=== PATIENT | male | born 1955 | race Caucasian/White ===

== ENCOUNTER → 2017-02-24 | Outpatient (CLI) | payer MEDICARE, BC ==
--- NOTE | 2017-02-25 08:27 | CT ---
EXAMINATION TYPE: CT angio chest DATE OF EXAM: 02/24/2017 COMPARISON: NONE HISTORY: Previous bypass in subclavian and clavicular arteries. Narrowing indicated in US. Pain in ar ms and hands. CT DLP: 1018.00 mGycm Automated exposure control for dose reduction was used. CONTRAST: CTA scan of the thorax is performed with IV Contrast, patient injected with 80 mL of Omnipaque 350, p ulmonary embolism protocol. MIP images are created and reviewed. 3D reconstructed images are create d on an independent workstation and reviewed. FINDINGS: LUNGS: The lungs are grossly clear with exception of some minimal basilar atelectatic change, there i s no concerning parenchymal mass or nodule identified. There is no pleural effusion or pneumothorax seen. The tracheobronchial tree is patent. AORTA: No additional significant abnormality is seen. MEDIASTINUM: There is satisfactory enhancement of the pulmonary artery and its branches, there is no CT evidence for pulmonary embolism. There are no greater than 1 cm hilar or mediastinal lymph nodes. No pericardial effusion is seen. OTHER: There is a small hiatal hernia. Right subclavian bypass graft changes are present.. IMPRESSION: POSTOP CHANGE.
--- NOTE | 2017-02-25 08:31 | CT ---
CT angiogram of the right upper extremity HISTORY: Anastomotic stenosis status post subclavian bypass graft Helical acquisition obtained through the right upper extremity during dynamic administration of nonio cindi radiographic contrast intravenously, 80 cc Omni 350 IV. Three-dimensional reconstructions perform ed on an alternate workstation. Correlation to CT angiogram of the chest same date The superior aortic branch vessels are patent. The right subclavian artery shows normal enhancement, patient's right subclavian bypass graft is noted. The axillary artery, brachial artery, radial and ul homa arteries are patent proximally, detail is somewhat limited peripherally. Surgical clips are prese nt at the level of the elbow. Proximal to the elbow there is a slight dilation of the brachial artery , apparent caliber change at the level of the surgical clip is noted which may represent anastomotic stenosis. Detail somewhat limited by field of view, technical factors however no definite filling def ect is present. Surgical clips present in the proximal forearm additionally. IMPRESSION: Bypass graft is patent, there may be anastomotic stricture within the upper extremity as described, detail somewhat limited peripherally as described above.
--- NOTE | 2017-02-25 08:36 | CT ---
EXAMINATION TYPE: CT angio neck DATE OF EXAM: 02/24/2017 HISTORY: Previous bypass in subclavian and clavicular arteries. Narrowing indicated in US. Pain in ar ms and hands. COMPARISON: CT angiogram of the chest same date CT DLP: 367.00 mGycm. Automated Exposure Control for Dose Reduction was Utilized. TECHNIQUE: CTA scan of the neck is performed with IV Contrast, patient injected with 50 mL of Omnipa que 350, axial images are obtained, coronal and sagittal reformatted images are reviewed. Three-D rec onstructed images are created on an independent workstation and reviewed. FINDINGS: Carotid/Vascular Structures: There is a three-vessel aortic arch. The left and right common carotid, the innominate artery, left and right subclavian arteries are patent. There is a stent present at the proximal subclavian artery, bypass graft is noted within the right subclavian artery distribution. A t the level of the distal aspect of the subclavian artery bypass there is a focal narrowing identifie d compatible with patient's history of stenosis. This is best seen on axial image 72. The vertebral arteries are patent bilaterally, left vertebral artery is dominant. Internal and machine operator replanter al carotid arteries are patent without significant stenosis. Other: No other significant abnormality. IMPRESSION: There is a stenosis distal to the patient's subclavian bypass graft near the junction wit h the axillary artery on the right, correlate with ultrasound findings.
== END | disposition home or self-care (01) ==
LOC: RADCTMAIN 15:34
PROVIDERS: ATTEND Surgery Vascular Surgery
DX: T82.858S Stenosis of other vascular prosthetic devices, implants and grafts, sequela (principal); Z88.0 Allergy status to penicillin; Z88.7 Allergy status to serum and vaccine; Z88.8 Allergy status to other drugs, medicaments and biological substances; Z91.09 Other allergy status, other than to drugs and biological substances
CPT/HCPCS: 70498; 71275; 73206; Q9967

== ENCOUNTER → 2017-05-02 | Outpatient (CLI) | payer MEDICARE, BC ==
[~2017-05-02] MED LIST: TUBERCULIN PPD (SKIN TEST) 5 UNIT/0.1 ML (MDV) VIAL INTRADERMA ONE
[2017-05-02 08:58] VITALS: BP 151/93; PULSE 83; RESP 16; TEMP 97.7
== END | disposition home or self-care (01) ==
LOC: PROCWHC3 08:40
PROVIDERS: ATTEND Internal Medicine Gastroenterology
DX: K51.50 Left sided colitis without complications (principal)
CPT/HCPCS: 86580

== ENCOUNTER 2017-05-04 17:17 | Inpatient (IN) | payer MEDICARE, BC ==
[2017-05-04] MEDS ORDERED: SODIUM CHLORIDE 0.9% 1,000 ML IV ONE (17:38)
--- NOTE | 2017-05-04 17:50 | ED ---
Nausea/Vomiting/Diarrhea HPI - General Chief complaint: Nausea/Vomiting/Diarrhea Stated complaint: Dry Heaving Time Seen by Provider: 05/04/17 17:30 Source: patient, RN notes reviewed Mode of arrival: ambulatory Limitations: no limitations - History of Present Illness Initial comments: This a 61-year-old male presents emergency Department chief complaint of diarrhea, C. diff. Patient states she's been having diarrhea over the last 2 weeks and to see his pilot submersible in [place] who ordered lab work and C. diff testing. Patient states that he was positive. Patient states that he was advised to emergency room because he was not feeling well and there is had some bleeding associated with it. Patient states he does take Coumadin has not recently had it checked. He states that he's been essentially anorexic because he has not felt well and has lost 15 pounds. Patient states he does have a history also colitis and this is why he sees a GI physician and states he's had bleeding in the past but never to this extent. Patient is having multiple episodes greater than 5 episodes of diarrhea daily very watery in nature. Patient states he has some abdominal cramping. He denies any chest pain, shortness of breath. He states he generalized feels weak and run down. - Related Data Home Medications Medication Instructions Recorded Confirmed Albuterol Inhaler [Ventolin Hfa 2 puff INHALATION RT-Q6H PRN 08/15/14 05/04/17 Inhaler] Atenolol [Tenormin] 25 mg PO BID 08/15/14 05/04/17 Montelukast [Singulair] 10 mg PO HS 08/15/14 05/04/17 Tamsulosin HCl [Flomax] 0.4 mg PO BID 08/15/14 05/04/17 Warfarin Sodium [Coumadin] 2.5 - 5 mg PO HS 08/15/14 05/04/17 Balsalazide Disodium 2,250 mg PO TID 08/07/15 05/04/17 Dicyclomine HCl 10 mg PO TID PRN 08/07/15 05/04/17 Fluticasone/Salmeterol [Advair 1 puff INHALATION RT-DAILY 08/07/15 05/04/17 250-50 Diskus] L.acidoph,Paracasei, B.lactis 1 cap PO DAILY 08/07/15 05/04/17 [Probiotic] Atorvastatin [Lipitor] 40 mg PO HS 05/02/17 05/04/17 Lansoprazole [Prevacid] 30 mg PO DAILY 05/02/17 05/04/17 Simponi 100 mg IN Q30D 05/02/17 05/04/17 Ubidecarenone [Co Q-10] 100 mg PO HS 05/02/17 05/04/17 Albuterol Nebulized [Ventolin 2.5 mg INHALATION RT-Q6H PRN 05/04/17 05/04/17 Nebulized] Aspirin [Adult Low Dose Aspirin EC] 81 mg PO DAILY 05/04/17 05/04/17 HYDROcodone/APAP 5-325MG [[place] 1 tab PO Q6HR PRN 05/04/17 05/04/17 5-325] Previous Rx's Medication Instructions Recorded Clopidogrel [Plavix] 75 mg PO DAILY #90 tab 08/11/15 Nitroglycerin Sl Tabs [Nitrostat] 0.4 mg SUBLINGUAL Q5M PRN #25 tab 08/11/15 Allergies Allergy/AdvReac Type Severity Reaction Status Date / Time iodine Allergy Severe Rash/Hives, Verified 05/04/17 17:48 Difficulty Breathing celecoxib [From Celebrex] Allergy Unknown Tongue Verified 05/04/17 17:48 Swelling chlorpheniramine polistirex Allergy Unknown Itching Verified 05/04/17 17:48 [From Tussionex] hydrocodone polistirex Allergy Unknown Itching Verified 05/04/17 17:48 [From Tussionex] Penicillins Allergy Unknown Unknown Verified 05/04/17 17:48 Rldrudz-Fkp-Ahp Reductase Allergy Unknown Muscle Verified 05/04/17 17:48 Inhibitor cramps Tetanus Vaccines and Toxoid Allergy Unknown Unknown Verified 05/04/17 17:48 [Tetanus Vaccines & Toxoid] Review of Systems ROS Statement: Those systems with pertinent positive or pertinent negative responses have been documented in the HPI. ROS Other: All systems not noted in ROS Statement are negative. Past Medical History Past Medical History: Coronary Artery Disease (CAD), Cancer, Chest Pain / Angina , Deep Vein Thrombosis (DVT), GERD/Reflux, GI Bleed, Hyperlipidemia, Hypertension, Prostate Disorder Additional Past Medical History / Comment(s): VERTIGO, BORN WITH EXTRA RIBS WHICH CAUSED NERVE DAMAGE TO BOTH ARMS, POOR CIRCULATION RIGHT ARM(thoracic outlet syndrome), STENTS IN RT ARM AND RT SUBCLAVIAN., ENLARGED PROSTATE, BASAL CELL CANCER, COLITIS, migraines. HX OF BLOOD CLOTS IN RIGHT ARM. History of Any Multi-Drug Resistant Organisms: None Reported, C-DIFF Date of last positivie culture/infection: 05/04/2017 MDRO Source:: stool Past Surgical History: Heart Catheterization With Stent, Hernia Repair Additional Past Surgical History / Comment(s): 08-10-15 heart cath with total of 5 stents to lad.REMOVAL OF LEFT RIB. [id number] RT SUBCLAVIAN BYPASS & BRACHIAL BYPASS WITH STENTS. MULTIPLE BLOCKAGES RIGHT ARM SUBCLAVIAN ARTERY, DEVIATED SEPTUM SURGERY, av inguinal hernia, LEFT CARPAL TUNNEL. hemorrhoidectomy, stent rca. Arteriogram right arm and subclavian- Past Anesthesia/Blood Transfusion Reactions: Motion Sickness Date of Last Stent Placement:: JULY 2006 Past Psychological History: No Psychological Hx Reported Smoking Status: Never smoker Past Alcohol Use History: Occasional Past Drug Use History: None Reported - Past Family History Brother(s) Family Medical History: Coronary Artery Disease (CAD) Additional Family Medical History / Comment(s): cabg Father Additional Family Medical History / Comment(s): age 60 from pul fibrosis Mother Family Medical History: Coronary Artery Disease (CAD) Additional Family Medical History / Comment(s): cabg General Exam General appearance: alert, in no apparent distress Head exam: Present: atraumatic, normocephalic, normal inspection Respiratory exam: Present: normal lung sounds bilaterally. Absent: respiratory distress, wheezes, rales, rhonchi, stridor Cardiovascular Exam: Present: normal rhythm, tachycardia, normal heart sounds. Absent: systolic murmur, diastolic murmur, rubs, gallop, clicks GI/Abdominal exam: Present: soft, tenderness (Mild diffuse), normal bowel sounds. Absent: distended, guarding, rebound, rigid Neurological exam: Present: alert, oriented X3, CN II-XII intact Skin exam: Present: warm, dry, intact, normal color. Absent: rash Course Vital Signs 05/04/17 05/04/17 17:23 18:28 Temperature 97.5 F L Pulse Rate 129 H 87 Respiratory 18 18 Rate Blood Pressure 115/81 O2 Sat by Pulse 98 Oximetry Medical Decision Making - Lab Data Result diagrams: 05/04/17 17:57 05/04/17 17:57 Lab Results 05/04/17 05/04/17 05/04/17 Range/Units 17:57 17:57 17:57 WBC 17.8 H (3.8-10.6) k/uL RBC 5.10 (4.30-5.90) m/uL Hgb 15.5 (13.0-17.5) gm/dL Hct 47.6 (39.0-53.0) % MCV 93.3 (80.0-100.0) fL MCH 30.3 (25.0-35.0) pg MCHC 32.5 (31.0-37.0) g/dL RDW 14.0 (11.5-15.5) % Plt Count 287 (150-450) k/uL Neutrophils % 81 % Lymphocytes % 12 % Monocytes % 5 % Eosinophils % 1 % Basophils % 0 % Neutrophils # 14.3 H (1.3-7.7) k/uL Lymphocytes # 2.0 (1.0-4.8) k/uL Monocytes # 0.9 (0-1.0) k/uL Eosinophils # 0.2 (0-0.7) k/uL Basophils # 0.1 (0-0.2) k/uL PT 30.9 H (9.0-12.0) sec INR 3.2 H (<1.2) APTT 34.5 H (22.0-30.0) sec Sodium 138 (137-145) mmol/L Potassium 3.6 (3.5-5.1) mmol/L Chloride 103 (98-107) mmol/L Carbon Dioxide 26 (22-30) mmol/L Anion Gap 9 mmol/L BUN 10 (9-20) mg/dL Creatinine 1.10 (0.66-1.25) mg/dL Est GFR (MDRD) Af Amer >60 (>60 ml/min/1.73 sqM) Est GFR (MDRD) Non-Af >60 (>60 ml/min/1.73 sqM) Glucose 125 H (74-99) mg/dL Calcium 8.6 (8.4-10.2) mg/dL 05/04/17 18:37 EKG performed at 18:24 normal sinus rhythm with left axis deviation rate of 87 CA 152 QRS duration of 90 QT/QTC 370/445 Disposition Clinical Impression: C. difficile colitis, Ulcerative colitis, Rectal bleeding, Dehydration, Leukocytosis, Warfarin-induced coagulopathy Disposition: ADMITTED IP TO THIS HOSP Condition: Fair Referrals: Vick Luciano MD [Primary Care Provider] - 1-2 days
[2017-05-04 18:14] LABS: Basophils # (A) 0.1 k/uL (0-0.2); Basophils % (A) 0 %; CH 31.9; CHCM 34.3; Eosinophils # (A) 0.2 k/uL (0-0.7); Eosinophils % (A) 1 %; HCT 47.6 % (39.0-53.0); HDW 2.78; HGB 15.5 gm/dL (13.0-17.5); Luc # (Auto) 0.25; Luc % (Auto) 1; Lymphocytes % (A) 12 %; MCH 30.3 pg (25.0-35.0); MCHC 32.5 g/dL (31.0-37.0); MCV 93.3 fL (80.0-100.0); Mean Platelet Volume 7.2; Monocytes # (A) 0.9 k/uL (0-1.0); Monocytes % (A) 5 %; Neutrophils # (A) 14.3 k/uL (1.3-7.7); Neutrophils % (A) 81 %; WBC 17.8 k/uL (3.8-10.6); WBC (Perox) 17.43
[2017-05-04 18:21] LABS: INR 3.2 (<1.2); Partial Thromboplastin Time 34.5 sec (22.0-30.0); Prothrombin Time 30.9 sec (9.0-12.0)
[2017-05-04 18:22] LABS: Anion Gap 9 mmol/L; Blood Urea Nitrogen 10 mg/dL (9-20); Calcium 8.6 mg/dL (8.4-10.2); Carbon Dioxide 26 mmol/L (22-30); Chloride 103 mmol/L (98-107); Glucose 125 mg/dL (74-99); Non-African American GFR(MDRD) >60 (>60 ml/min/1.73 sqM); Potassium 3.6 mmol/L (3.5-5.1); Sodium 138 mmol/L (137-145)
[2017-05-04] MEDS ORDERED: NALOXONE 0.4 MG/ML 1 ML VIAL IV PRN (18:39)
[2017-05-04] MEDS ORDERED: ALBUTEROL INHALER 60 PUFF/8 GM INHALER INHALATION PRN (18:43)
[2017-05-04] MEDS ORDERED: HYDROcodone/APAP 5-325MG 1 EACH TAB PO PRN (18:43)
[2017-05-04] MEDS ORDERED: DICYCLOMINE 10 MG CAP PO PRN (18:43)
[2017-05-04] MEDS ORDERED: ALBUTEROL NEBULIZED 2.5 MG/3 ML INHALATION PRN (18:43)
[2017-05-04] MEDS ORDERED: NITROGLYCERIN SL TABS 0.4 MG TAB SUBLINGUAL PRN (18:43)
[2017-05-04] MEDS ORDERED: metroNIDAZOLE 500 MG TAB PO STA (18:43)
[2017-05-04] MEDS: SODIUM CHLORIDE 0.9% 1,000 ML IV SCH (19:01)
[2017-05-04] MEDS ORDERED: NON-FORMULARY DRUG (Ubidecarenone [Co Q-10] 100 MG) PO SCH (21:00)
[2017-05-04 21:14] VITALS: BMI 26.4
[2017-05-04] MEDS: ATORVASTATIN 40 MG TAB PO SCH (22:27)
[2017-05-04] MEDS: TAMSULOSIN 0.4 MG CAP.ER.24H PO SCH (22:27)
[2017-05-04] MEDS: ATENOLOL 25 MG TAB PO SCH (22:27)
[2017-05-04] MEDS: MONTELUKAST 10 MG TAB PO SCH (22:27)
[2017-05-04] MEDS: metroNIDAZOLE 500 MG TAB PO SCH (22:27)
[2017-05-05] MEDS ORDERED: PANTOPRAZOLE 40 MG TABLET PO SCH (07:30)
[2017-05-05] MEDS: SYMBICORT 80-4.5 MCG INHALER INHALATION SCH ×2 (07:46→19:55)
[2017-05-05] MEDS: SODIUM CHLORIDE 0.9% 1,000 ML IV SCH ×2 (08:18→15:14)
[2017-05-05] MEDS: LACTOBACILLUS ACIDOPH & BULGAR 1 EACH PACKET PO SCH (08:18)
[2017-05-05] MEDS: ATENOLOL 25 MG TAB PO SCH (08:18)
[2017-05-05] MEDS: metroNIDAZOLE 500 MG TAB PO SCH (08:20)
[2017-05-05] MEDS: TAMSULOSIN 0.4 MG CAP.ER.24H PO SCH ×2 (08:21→20:10)
[2017-05-05 08:59] LABS: Basophils # (A) 0.1 k/uL (0-0.2); Basophils % (A) 1 %; CH 31.4; CHCM 33.3; Eosinophils # (A) 0.3 k/uL (0-0.7); Eosinophils % (A) 3 %; HCT 44.4 % (39.0-53.0); Luc # (Auto) 0.25; Luc % (Auto) 2; Lymphocytes # (A) 2.3 k/uL (1.0-4.8); Lymphocytes % (A) 21 %; MCH 30.1 pg (25.0-35.0); MCHC 31.7 g/dL (31.0-37.0); Mean Platelet Volume 7.2; Monocytes # (A) 0.6 k/uL (0-1.0); Monocytes % (A) 5 %; Neutrophils # (A) 7.7 k/uL (1.3-7.7); Neutrophils % (A) 68 %; RBC 4.67 m/uL (4.30-5.90); RDW 13.7 % (11.5-15.5); WBC 11.2 k/uL (3.8-10.6); WBC (Perox) 10.66
[2017-05-05 09:04] LABS: Prothrombin Time 28.6 sec (9.0-12.0)
--- NOTE | 2017-05-05 13:27 | P.CNPUL ---
History of Present Illness Consult date: 05/05/17 Reason for consult: asthma Chief complaint: Nausea,vomiting and diarrhea History of present illness: This is a 61-year-old male patient who typically sees Dr. Luciano in our office for his asthma who presented to the emergency department on 05/04/2017 with dry heaving, diarrhea 3 weeks, nausea and vomiting. He has an underlying history of ulcerative colitis for which she sees a GI specialist from [place], Dr. Jonathan Chacon, who has the patient on Golimumab, dicyclomine and balsalazide disodium. Patient has recently had an overnight hospitalization at the [facility] in [place] for an arteriogram of his right arm for his history of right subclavian and brachial bypass with stents and history of DVT in his right arm. Patient was having frequent episodes of watery diarrhea up to 5 or 6 episodes a day, and some bleeding associated with it. He developed nausea and vomiting, and 15 pound weight loss in the last 3 weeks. He went to see Dr. Chacon who had recommended stool studies and stool for C. diff. Stool for C. diff was positive on 05/04/2017. He was initiated on oral Flagyl however is dry heaving got progressively worse along with his weakness and patient came into the emergency room for evaluation and was subsequently admitted. He is on Coumadin for his history of DVT in his right arm, INR admission was 3.2. Patient had one episode of loose, blood tinged stool this morning. His hemoglobin is stable at 14 today. There is evidence of leukocytosis on admission, which has improved today, down to 11.2 from 17.8. He denies fever or chills, denies chest congestion or significant sputum production. Denies hemoptysis, or increased shortness of breath. Today he is able to tolerate sips of clear liquids. He did receive a liter bolus of IV crystalloids in the emergency room, and his current maintenance IV fluid is 0.9 normal saline at 100 mL per hour. He denies any pulmonary complaints, his asthma has been under good control. Lung sounds are clear to auscultation, no rhonchi no wheezes. His abdomen is tender on both sides from extensive retching. He was tachycardic on presentation with a heart rate in the 129 BPM, today his heart rate is controlled and around 80 BPM. We will continue with his maintenance inhalers and nebulized albuterol as needed. Continue his home dose Singulair. Review of Systems Constitutional: Denies chills, Denies fever Eyes: denies blurred vision, denies pain Ears, nose, mouth and throat: Denies headache, Denies sore throat Cardiovascular: Denies chest pain, Denies shortness of breath Respiratory: Denies cough Gastrointestinal: Denies abdominal pain, Denies diarrhea, Denies nausea, Denies vomiting Musculoskeletal: Denies myalgias Integumentary: Denies pruritus, Denies rash Neurological: Denies numbness, Denies weakness Psychiatric: Denies anxiety, Denies depression Endocrine: Denies fatigue, Denies weight change Past Medical History Past Medical History: Coronary Artery Disease (CAD), Cancer, Chest Pain / Angina , Deep Vein Thrombosis (DVT), GERD/Reflux, GI Bleed, Hyperlipidemia, Hypertension, Prostate Disorder Additional Past Medical History / Comment(s): VERTIGO, BORN WITH EXTRA RIBS WHICH CAUSED NERVE DAMAGE TO BOTH ARMS, POOR CIRCULATION RIGHT ARM(thoracic outlet syndrome), STENTS IN RT ARM AND RT SUBCLAVIAN., ENLARGED PROSTATE, BASAL CELL CANCER, COLITIS, migraines. HX OF BLOOD CLOTS IN RIGHT ARM. History of Any Multi-Drug Resistant Organisms: None Reported, C-DIFF Date of last positivie culture/infection: 05/04/2017 MDRO Source:: stool Past Surgical History: Heart Catheterization With Stent, Hernia Repair Additional Past Surgical History / Comment(s): heart cath with total of 6 stents to lad.REMOVAL OF LEFT RIB. [id number] RT SUBCLAVIAN BYPASS & BRACHIAL BYPASS WITH STENTS. MULTIPLE BLOCKAGES RIGHT ARM SUBCLAVIAN ARTERY, DEVIATED SEPTUM SURGERY, av inguinal hernia, LEFT CARPAL TUNNEL. hemorrhoidectomy, stent rca. Arteriogram right arm and subclavian- Past Anesthesia/Blood Transfusion Reactions: Motion Sickness Date of Last Stent Placement:: July 2015 Past Psychological History: No Psychological Hx Reported Smoking Status: Never smoker Past Alcohol Use History: Occasional Past Drug Use History: None Reported - Past Family History Brother(s) Family Medical History: Coronary Artery Disease (CAD) Additional Family Medical History / Comment(s): cabg Father Additional Family Medical History / Comment(s): age 60 from pul fibrosis Mother Family Medical History: Coronary Artery Disease (CAD) Additional Family Medical History / Comment(s): cabg Medications and Allergies Home Medications Medication Instructions Recorded Confirmed Type Albuterol Inhaler [Ventolin Hfa 2 puff INHALATION RT-Q6H PRN 08/15/14 05/04/17 History Inhaler] Atenolol [Tenormin] 25 mg PO BID 08/15/14 05/04/17 History Montelukast [Singulair] 10 mg PO HS 08/15/14 05/04/17 History Tamsulosin HCl [Flomax] 0.4 mg PO BID 08/15/14 05/04/17 History Warfarin Sodium [Coumadin] 2.5 - 5 mg PO HS 08/15/14 05/04/17 History Balsalazide Disodium 2,250 mg PO TID 08/07/15 05/04/17 History Dicyclomine HCl 10 mg PO TID PRN 08/07/15 05/04/17 History Fluticasone/Salmeterol [Advair 1 puff INHALATION RT-DAILY 08/07/15 05/04/17 History 250-50 Diskus] L.acidoph,Paracasei, B.lactis 1 cap PO DAILY 08/07/15 05/04/17 History [Probiotic] Clopidogrel [Plavix] 75 mg PO DAILY #90 tab 08/11/15 05/04/17 Rx Nitroglycerin Sl Tabs [Nitrostat] 0.4 mg SUBLINGUAL Q5M PRN #25 tab 08/11/1512/14 Rx Atorvastatin [Lipitor] 40 mg PO HS 05/02/17 05/04/17 History Lansoprazole [Prevacid] 30 mg PO DAILY 05/02/17 05/04/17 History Simponi 100 mg IN Q30D 05/02/17 05/04/17 History Ubidecarenone [Co Q-10] 100 mg PO HS 05/02/17 05/04/17 History Albuterol Nebulized [Ventolin 2.5 mg INHALATION RT-Q6H PRN 05/04/17 05/04/17 History Nebulized] Aspirin [Adult Low Dose Aspirin EC] 81 mg PO DAILY 05/04/17 05/04/17 History HYDROcodone/APAP 5-325MG [[place] 1 tab PO Q6HR PRN 05/04/17 05/04/17 History 5-325] Allergies Allergy/AdvReac Type Severity Reaction Status Date / Time iodine Allergy Severe Rash/Hives, Verified 05/04/17 17:48 Difficulty Breathing celecoxib [From Celebrex] Allergy Unknown Tongue Verified 05/04/17 17:48 Swelling chlorpheniramine polistirex Allergy Unknown Itching Verified 05/04/17 17:48 [From Tussionex] hydrocodone polistirex Allergy Unknown Itching Verified 05/04/17 17:48 [From Tussionex] Penicillins Allergy Unknown Unknown Verified 05/04/17 17:48 Zmekalv-Ghw-Qbr Reductase Allergy Unknown Muscle Verified 05/04/17 17:48 Inhibitor cramps Tetanus Vaccines and Toxoid Allergy Unknown Unknown Verified 05/04/17 17:48 [Tetanus Vaccines & Toxoid] Physical Exam Vitals: Vital Signs Temp Pulse Pulse Pulse Resp BP BP 05/05/17 07:00 97.1 F L 68 20 96/56 05/05/17 00:00 18 05/04/17 23:00 97.3 F L 69 18 110/67 05/04/17 20:07 98.5 F 87 18 137/74 05/04/17 19:01 98.4 F 87 18 129/66 05/04/17 18:28 87 18 05/04/17 17:23 97.5 F L 129 H 18 115/81 Pulse Ox 05/05/17 07:00 96 05/05/17 00:00 05/04/17 23:00 96 05/04/17 20:07 97 05/04/17 19:01 98 05/04/17 18:28 05/04/17 17:23 98 Intake and Output 05/04/17 05/05/17 05/05/17 22:59 06:59 14:59 Other: Voiding Method Toilet # Voids 2 2 # Bowel Movements 1 Weight 79 kg 79 kg Patient Weight 05/06/17 06:59 Weight 79 kg GENERAL EXAM: Alert, active, comfortable in no apparent distress. HEAD: Normocephalic. EYES: Normal reaction of pupils, equal size. NOSE: Clear with pink turbinates. THROAT: No erythema or exudates. NECK: No masses, no JVD. CHEST: No chest wall deformity. LUNGS: Equal air entry with no crackles, wheeze, rhonchi or dullness. CVS: S1 and S2 normal with no audible mumurs, regular rhythm. ABDOMEN: No hepatosplenomegaly, normal bowel sounds, no rigidity, tenderness of both sides abdominal wall from retching SPINE: No scoliosis or deformity SKIN: No rashes CENTRAL NERVOUS SYSTEM: No focal deficits, tone is normal in all 4 extremities. Results - Laboratory Findings CBC and BMP: 05/05/17 08:19 05/04/17 17:57 PT/INR, D-dimer PT 28.6 sec (9.0-12.0) H 05/05/17 08:19 INR 3.0 (<1.2) H 05/05/17 08:19 Abnormal lab findings: Abnormal Labs 05/04/17 05/04/17 05/04/17 17:57 17:57 17:57 WBC 17.8 H Neutrophils # 14.3 H PT 30.9 H INR 3.2 H APTT 34.5 H Glucose 125 H 05/05/17 10 08:19 08:19 WBC 11.2 H Neutrophils # PT 28.6 H INR 3.0 H APTT Glucose Assessment and Plan Plan: Assessment: #1. Acute C. difficile colitis, present on admission #2. Acute Rectal bleeding, warfarin-induced coagulopathy, INR is 3.2 on admission #3. History of bronchial asthma, stable at this time. #4. Acute dehydration from nausea vomiting diarrhea. #5. History of ulcerative colitis, currently on Golimumab, Bentyl and balsalazide disodium. #6. History of right arm DVT, currently on Coumadin. #7. History of coronary artery disease. #8. History of GI bleeding #9. History of hypertension #10. History of right subclavian and brachial bypass with stents. Plan: Continue patient on Symbicort, albuterol nebulized treatments as needed and home go Singulair. Patient's asthma seems to be stable for now. No acute pulmonary complaints. Continue with hydration, Flagyl, Bentyl and lactobacillus. We'll continue to follow with you. I performed a history & physical examination of the patient and discussed their management with my nurse practitioner, Janeth Almazan. I reviewed the nurse practitioner's note and agree with the documented findings and plan of care. Time with Patient: Greater than 30
--- NOTE | 2017-05-05 15:01 | P.HPIM ---
History of Present Illness 61-year-old came in the because of C. diff colitis that was diagnosed in as an outpatient patient has to stay in the hospital because he get the blood in the stools today morning. Patient is on 3 medications couple of them on anti- platelet medication one of them is Coumadin. Patient is on dual antiplatelet therapy for his cardiac catheterization and stents that were placed about a year and half ago, patient is on Coumadin because of his DVTs in the past multiple of them. Patient does have history of Crohn's colitis this time patient has a C. diff colitis patient has minimal crampy abdominal pain in the lower abdominal quadrants. Patient denied any fever, chills although his hemoglobin remained stable because of his bloody bowel movements I'm holding off on above-mentioned 3 medications that his aspirin, Plavix and and Coumadin patient probably need to be discharged on aspirin and Coumadin Plavix can be held since his cardiac catheterization and stenting was more than a year ago same thing will be discussed with his chute builder will monitor 1 more night because of his blood in the stools. Patient has leukocytosis of 17,000 because of which am putting him on vancomycin and discontinuing metronidazole IV. Patient's INR is therapeutic on this admission. Patient was recently hospitalized but was not on any antibiotics as per the patient Review of Systems REVIEW OF SYSTEMS: CONSTITUTIONAL: No fever, no malaise, no fatigue. HEENT: No recent visual problems or hearing problems. Denied any sore throat. CARDIOVASCULAR: No chest pain, orthopnea, PND, no palpitations, no syncope. PULMONARY: No shortness of breath, no cough, no hemoptysis. GASTROINTESTINAL: As described in HPI NEUROLOGICAL: No headaches, no weakness, no numbness. HEMATOLOGICAL: Denies any bleeding or petechiae. GENITOURINARY: Denies any burning micturition, frequency, or urgency. MUSCULOSKELETAL/RHEUMATOLOGICAL: Denies any joint pain, swelling, or any muscle pain. ENDOCRINE: Denies any polyuria or polydipsia. The rest of the 14-point review of systems is negative. Past Medical History Past Medical History: Coronary Artery Disease (CAD), Cancer, Chest Pain / Angina , Deep Vein Thrombosis (DVT), GERD/Reflux, GI Bleed, Hyperlipidemia, Hypertension, Prostate Disorder Additional Past Medical History / Comment(s): VERTIGO, BORN WITH EXTRA RIBS WHICH CAUSED NERVE DAMAGE TO BOTH ARMS, POOR CIRCULATION RIGHT ARM(thoracic outlet syndrome), STENTS IN RT ARM AND RT SUBCLAVIAN., ENLARGED PROSTATE, BASAL CELL CANCER, COLITIS, migraines. HX OF BLOOD CLOTS IN RIGHT ARM. History of Any Multi-Drug Resistant Organisms: None Reported, C-DIFF Date of last positivie culture/infection: 05/04/2017 MDRO Source:: stool Past Surgical History: Heart Catheterization With Stent, Hernia Repair Additional Past Surgical History / Comment(s): heart cath with total of 6 stents to lad.REMOVAL OF LEFT RIB. [id number] RT SUBCLAVIAN BYPASS & BRACHIAL BYPASS WITH STENTS. MULTIPLE BLOCKAGES RIGHT ARM SUBCLAVIAN ARTERY, DEVIATED SEPTUM SURGERY, av inguinal hernia, LEFT CARPAL TUNNEL. hemorrhoidectomy, stent rca. Arteriogram right arm and subclavian- Past Anesthesia/Blood Transfusion Reactions: Motion Sickness Date of Last Stent Placement:: July 2015 Past Psychological History: No Psychological Hx Reported Smoking Status: Never smoker Past Alcohol Use History: Occasional Past Drug Use History: None Reported - Past Family History Brother(s) Family Medical History: Coronary Artery Disease (CAD) Additional Family Medical History / Comment(s): cabg Father Additional Family Medical History / Comment(s): age 60 from pul fibrosis Mother Family Medical History: Coronary Artery Disease (CAD) Additional Family Medical History / Comment(s): cabg Medications and Allergies Home Medications Medication Instructions Recorded Confirmed Type Albuterol Inhaler [Ventolin Hfa 2 puff INHALATION RT-Q6H PRN 08/15/14 05/04/17 History Inhaler] Atenolol [Tenormin] 25 mg PO BID 08/15/14 05/04/17 History Montelukast [Singulair] 10 mg PO HS 08/15/14 05/04/17 History Tamsulosin HCl [Flomax] 0.4 mg PO BID 08/15/14 05/04/17 History Warfarin Sodium [Coumadin] 2.5 - 5 mg PO HS 08/15/14 05/04/17 History Balsalazide Disodium 2,250 mg PO TID 08/07/15 05/04/17 History Dicyclomine HCl 10 mg PO TID PRN 08/07/15 05/04/17 History Fluticasone/Salmeterol [Advair 1 puff INHALATION RT-DAILY 08/07/15 05/04/17 History 250-50 Diskus] L.acidoph,Paracasei, B.lactis 1 cap PO DAILY 08/07/15 05/04/17 History [Probiotic] Clopidogrel [Plavix] 75 mg PO DAILY #90 tab 08/11/15 05/04/17 Rx Nitroglycerin Sl Tabs [Nitrostat] 0.4 mg SUBLINGUAL Q5M PRN #25 tab 08/11/1512/14 Rx Atorvastatin [Lipitor] 40 mg PO HS 05/02/17 05/04/17 History Lansoprazole [Prevacid] 30 mg PO DAILY 05/02/17 05/04/17 History Simponi 100 mg IN Q30D 05/02/17 05/04/17 History Ubidecarenone [Co Q-10] 100 mg PO HS 05/02/17 05/04/17 History Albuterol Nebulized [Ventolin 2.5 mg INHALATION RT-Q6H PRN 05/04/17 05/04/17 History Nebulized] Aspirin [Adult Low Dose Aspirin EC] 81 mg PO DAILY 05/04/17 05/04/17 History HYDROcodone/APAP 5-325MG [[place] 1 tab PO Q6HR PRN 05/04/17 05/04/17 History 5-325] Allergies Allergy/AdvReac Type Severity Reaction Status Date / Time iodine Allergy Severe Rash/Hives, Verified 05/04/17 17:48 Difficulty Breathing celecoxib [From Celebrex] Allergy Unknown Tongue Verified 05/04/17 17:48 Swelling chlorpheniramine polistirex Allergy Unknown Itching Verified 05/04/17 17:48 [From Tussionex] hydrocodone polistirex Allergy Unknown Itching Verified 05/04/17 17:48 [From Tussionex] Penicillins Allergy Unknown Unknown Verified 05/04/17 17:48 Uaeslvm-Acu-Noq Reductase Allergy Unknown Muscle Verified 05/04/17 17:48 Inhibitor cramps Tetanus Vaccines and Toxoid Allergy Unknown Unknown Verified 05/04/17 17:48 [Tetanus Vaccines & Toxoid] Physical Exam Vitals: Vital Signs Temp Pulse Pulse Pulse Resp BP BP 05/05/17 07:00 97.1 F L 68 20 96/56 05/05/17 00:00 18 05/04/17 23:00 97.3 F L 69 18 110/67 05/04/17 20:07 98.5 F 87 18 137/74 05/04/17 19:01 98.4 F 87 18 129/66 05/04/17 18:28 87 18 05/04/17 17:23 97.5 F L 129 H 18 115/81 Pulse Ox 05/05/17 07:00 96 05/05/17 00:00 05/04/17 23:00 96 05/04/17 20:07 97 05/04/17 19:01 98 05/04/17 18:28 05/04/17 17:23 98 Intake and Output 05/04/17 05/05/17 05/05/17 22:59 06:59 14:59 Other: Voiding Method Toilet # Voids 2 2 # Bowel Movements 1 Weight 79 kg 79 kg Patient Weight 05/06/17 06:59 Weight 79 kg PHYSICAL EXAMINATION: GENERAL: The patient is alert and oriented x3, not in any acute distress. Well developed, well nourished. HEENT: Pupils are round and equally reacting to light. EOMI. No scleral icterus. No conjunctival pallor. Normocephalic, atraumatic. No pharyngeal erythema. No thyromegaly. CARDIOVASCULAR: S1 and S2 present. No murmurs, rubs, or gallops. PULMONARY: Chest is clear to auscultation, no wheezing or crackles. ABDOMEN: Soft, nontender, nondistended, normoactive bowel sounds. No palpable organomegaly. MUSCULOSKELETAL: No joint swelling or deformity. EXTREMITIES: No cyanosis, clubbing, or pedal edema. NEUROLOGICAL: Gross neurological examination did not reveal any focal deficits. SKIN: No rashes. Results CBC & Chem 7: 05/05/17 08:19 05/04/17 17:57 Labs: Abnormal Lab Results - Last 24 Hours (Table) 05/04/17 05/04/17 05/04/17 Range/Units 17:57 17:57 17:57 WBC 17.8 H (3.8-10.6) k/uL Neutrophils # 14.3 H (1.3-7.7) k/uL PT 30.9 H (9.0-12.0) sec INR 3.2 H (<1.2) APTT 34.5 H (22.0-30.0) sec Glucose 125 H (74-99) mg/dL 05/05/17 05/05/17 Range/Units 08:19 08:19 WBC 11.2 H (3.8-10.6) k/uL Neutrophils # (1.3-7.7) k/uL PT 28.6 H (9.0-12.0) sec INR 3.0 H (<1.2) APTT (22.0-30.0) sec Glucose (74-99) mg/dL Thrombosis Risk Factor Assmnt - Choose All That Apply Any of the Below Risk Factors Present?: Yes Each Factor Represents 1 point: Obesity (BMI >25) Other Risk Factors: Yes Each Risk Factor Represents 2 Points: Age 61-74 years Each Risk Factor Represents 3 Points: History of DVT/PE Thrombosis Risk Factor Assessment Total Risk Factor Score: 6 Thrombosis Risk Factor Assessment Level: High Risk Assessment and Plan Plan: #1 C. diff colitis: Patient will be started on oral vancomycin will need about 10 days of oral vancomycin. Proton pump inhibitor will be discontinued #2 mild GI bleed is secondary to anticoagulation and an due to colitis: Monitor 1 more night hemoglobin fairly stable only minimal bleed because of dual antiplatelet therapy and Coumadin. #3 coronary artery disease with multiple stents in the past. Will discuss with his chute builder regarding dual anti-platelet therapy patient probably discharge will be discharged on aspirin no Plavix and will be on Coumadin. #4 leukocytosis due to C. diff colitis which is improving. #5 multiple DVTs in the past #6 history of ulcerative colitis for which patient is on salicylate which will be continued #7 benign prostatic hypertrophy #8 COPD without any acute exacerbation. #9 hyperlipidemia.
[2017-05-05] MEDS: VANCOMYCIN ORAL SOLUTION 250 MG/5 ML BOTTLE PO SCH ×3 (15:11→23:33)
[2017-05-05] MEDS: BALSALAZIDE DISODIUM 750 MG CAPSULE PO SCH ×2 (15:18→20:11)
[2017-05-05] MEDS: CHERRY FLAVOR 60 ML BOTTLE PO SCH ×2 (17:23→23:33)
[2017-05-05] MEDS: ATORVASTATIN 40 MG TAB PO SCH (20:10)
[2017-05-05] MEDS: FAMOTIDINE 20 MG TAB PO SCH (20:10)
[2017-05-05] MEDS: MONTELUKAST 10 MG TAB PO SCH (20:10)
[2017-05-05 23:08] VITALS: RESP 18
[2017-05-06] MEDS: SODIUM CHLORIDE 0.9% 1,000 ML IV SCH (00:27)
[2017-05-06] MEDS: VANCOMYCIN ORAL SOLUTION 250 MG/5 ML BOTTLE PO SCH (06:00)
[2017-05-06] MEDS: CHERRY FLAVOR 60 ML BOTTLE PO SCH (06:00)
[2017-05-06 07:38] VITALS: BP 121/72; PULSE 76; TEMP 97.4
[2017-05-06 08:21] LABS: CH 31.4; CHCM 33.2; HCT 41.1 % (39.0-53.0); HDW 2.82; HGB 13.1 gm/dL (13.0-17.5); MCH 30.3 pg (25.0-35.0); MCHC 31.9 g/dL (31.0-37.0); Mean Platelet Volume 7.5; RBC 4.33 m/uL (4.30-5.90); RDW 13.8 % (11.5-15.5); WBC 8.2 k/uL (3.8-10.6)
[2017-05-06 08:29] LABS: Anion Gap 6 mmol/L; Blood Urea Nitrogen 6 mg/dL (9-20); Calcium 8.1 mg/dL (8.4-10.2); Carbon Dioxide 27 mmol/L (22-30); Chloride 110 mmol/L (98-107); Glucose 90 mg/dL (74-99); Non-African American GFR(MDRD) >60 (>60 ml/min/1.73 sqM); Potassium 3.7 mmol/L (3.5-5.1); Sodium 143 mmol/L (137-145)
[2017-05-06] MEDS: SYMBICORT 80-4.5 MCG INHALER INHALATION SCH (08:50)
[2017-05-06] MEDS: TAMSULOSIN 0.4 MG CAP.ER.24H PO SCH (09:06)
[2017-05-06] MEDS: BALSALAZIDE DISODIUM 750 MG CAPSULE PO SCH (09:07)
[2017-05-06] MEDS: FAMOTIDINE 20 MG TAB PO SCH (09:07)
[2017-05-06] MEDS: LACTOBACILLUS ACIDOPH & BULGAR 1 EACH PACKET PO SCH (09:08)
--- NOTE | 2017-05-06 11:18 | P.PN ---
Subjective Progress note dated 05/06/2017 This is a 61-year-old male admitted with a diagnosis of Clostridium difficile colitis some rectal bleeding secondary to Coumadin chronic bronchial asthma dehydration ulcerative colitis a previous history of right arm DVT CAD GI bleed hypertension and right subclavian and brachial bypass with stents. The patient was doing very well on Flagyl. Apparently felt much improved. Someone switched to vancomycin he doesn't seem to be doing as well. I told the patient he could be discharged home today on Flagyl or vancomycin. Vancomycin may be more difficult to get the pharmacy and it probably is going to be more expensive. I did talk to the nurse about asking the hospitalist as to whether or not the patient could be discharged home on Flagyl. Anyway I would recommend Flagyl 500 mg 3 times a day for 7-10 days. The patient otherwise is doing well. Sees my partner is her primary. Feeling much better. His is in the room with him. Objective - Vital Signs Vital signs: Vital Signs Temp 97.4 F L 05/06/17 07:00 Pulse 76 05/06/17 07:00 Resp 18 05/06/17 07:00 BP 121/72 05/06/17 07:00 Pulse Ox 95 05/06/17 07:00 Intake & Output 05/05/17 05/06/17 05/06/17 18:59 06:59 18:59 Intake Total 240 975 300 Balance 240 975 300 Weight 79 kg Intake: Oral 240 975 300 Other: Voiding Method Toilet # Voids 1 2 # Bowel Movements 1 - Exam No acute distress, oriented 3. HEENT examination is grossly unremarkable. Mucous membranes are moist. Neck supple. Full range of motion. No adenopathy thyromegaly or neck vein distention. Cardiovascular examination reveals regular rhythm rate. S1-S2 normal. No S3- S4 or murmur. Lungs are clear breath sounds are equal. No adventitious lung sounds. Abdomen soft. Bowel sounds are heard. Extremities are intact. No cyanosis clubbing or edema. Skin is without rash. Neurologic examination is nonfocal. - Labs CBC & Chem 7: 05/06/17 07:44 05/06/17 07:44 Labs: Abnormal Lab Results - Last 24 Hours (Table) 05/06/17 Range/Units 07:44 Chloride 110 H (98-107) mmol/L BUN 6 L (9-20) mg/dL Calcium 8.1 L (8.4-10.2) mg/dL Assessment and Plan (1) Asthma Status: Acute (2) CAD (coronary artery disease) Status: Acute (3) Hypertension Status: Acute (4) DVT of axillary vein, acute right Status: Acute (5) C. difficile colitis Status: Acute (6) Dehydration Status: Acute (7) Leukocytosis Status: Acute (8) Rectal bleeding Status: Acute (9) Ulcerative colitis Status: Acute (10) Warfarin-induced coagulopathy Status: Acute Plan: Plan dated 05/06/2017 The patient was doing well on Flagyl. The patient was switched to vancomycin. Doesn't seem that the vancomycin and agrees with him as much. The patient could be discharged home on Flagyl 503 times a day for 7-10 days. For the patient could be discharged home on vancomycin. Vancomycin is probably going to be more difficult for the pharmacy to get especially on a weekend and likely is going to be more expensive for the patient. The patient should follow with my partner post discharge. No additional recommendations are made. Time with Patient: Less than 30
[2017-05-06] MEDS ORDERED: ASPIRIN 81 MG PO PRN (12:08)
--- NOTE | 2017-05-06 12:17 | P.DS ---
Providers Date of admission: 05/04/17 18:46 Attending physician: Jesús Watson Consults: 05/05/17 13:27 Consult Physician Routine Consulting Provider: Huseyin Cornell Consult Reason/Comments: knew the pt Do you want consulting provider notified?: Yes Primary care physician: Vick Luciano [facility] Hospital Course: Patient was admitted for C. diff colitis and patient had a bloody stools yesterday which resolved at this point of time patient started having diarrhea patient does have chronic diarrhea because of be stopped Bentyl which she was taking at home as he has C. diff this time he started having diarrhea again. Patient will be discharged home with either oral vancomycin and metronidazole oral. Discussed with cardiology for now will hold off on Plavix until he sees his stone decorator as an outpatient patient will be discharged on aspirin and Coumadin PHYSICAL EXAMINATION: GENERAL: The patient is alert and oriented x3, not in any acute distress. Well developed, well nourished. HEENT: Pupils are round and equally reacting to light. EOMI. No scleral icterus. No conjunctival pallor. Normocephalic, atraumatic. No pharyngeal erythema. No thyromegaly. CARDIOVASCULAR: S1 and S2 present. No murmurs, rubs, or gallops. PULMONARY: Chest is clear to auscultation, no wheezing or crackles. ABDOMEN: Soft, nontender, nondistended, normoactive bowel sounds. No palpable organomegaly. MUSCULOSKELETAL: No joint swelling or deformity. EXTREMITIES: No cyanosis, clubbing, or pedal edema. NEUROLOGICAL: Gross neurological examination did not reveal any focal deficits. SKIN: No rashes. #1 C. diff colitis: #2 mild GI bleed is secondary to anticoagulation and an due to colitis: #3 coronary artery disease with multiple stents in the past. #4 leukocytosis due to C. diff colitis which is improving. #5 multiple DVTs in the past #6 history of ulcerative colitis for which patient is on salicylate which will be continued #7 benign prostatic hypertrophy #8 COPD without any acute exacerbation. #9 hyperlipidemia. Patient Condition at Discharge: Fair Plan - Discharge Summary New Discharge Prescriptions: New Vancomycin Oral Solution 250 mg PO Q6HR #10 day Continue Montelukast [Singulair] 10 mg PO HS Tamsulosin HCl [Flomax] 0.4 mg PO BID Albuterol Inhaler [Ventolin Hfa Inhaler] 2 puff INHALATION RT-Q6H PRN PRN Reason: Shortness Of Breath Warfarin Sodium [Coumadin] 2.5 - 5 mg PO HS Fluticasone/Salmeterol [Advair 250-50 Diskus] 1 puff INHALATION RT-DAILY L.acidoph,Paracasei, B.lactis [Probiotic] 1 cap PO DAILY Dicyclomine HCl 10 mg PO TID PRN PRN Reason: colitis Balsalazide Disodium 2,250 mg PO TID Nitroglycerin Sl Tabs [Nitrostat] 0.4 mg SUBLINGUAL Q5M PRN #25 tab PRN Reason: Chest Pain Lansoprazole [Prevacid] 30 mg PO DAILY Atorvastatin [Lipitor] 40 mg PO HS Ubidecarenone [Co Q-10] 100 mg PO HS Simponi 100 mg IN Q30D HYDROcodone/APAP 5-325MG [[place] 5-325] 1 tab PO Q6HR PRN PRN Reason: Pain Albuterol Nebulized [Ventolin Nebulized] 2.5 mg INHALATION RT-Q6H PRN PRN Reason: Shortness Of Breath Aspirin [Adult Low Dose Aspirin EC] 81 mg PO DAILY Changed Atenolol [Tenormin] 25 mg PO DAILY #0 Discontinued Clopidogrel [Plavix] 75 mg PO DAILY #90 tab Discharge Medication List Albuterol Inhaler [Ventolin Hfa Inhaler] 2 puff INHALATION RT-Q6H PRN 08/15/14 [ History] Montelukast [Singulair] 10 mg PO HS 08/15/14 [History] Tamsulosin HCl [Flomax] 0.4 mg PO BID 08/15/14 [History] Warfarin Sodium [Coumadin] 2.5 - 5 mg PO HS 08/15/14 [History] Balsalazide Disodium 2,250 mg PO TID 08/07/15 [History] Dicyclomine HCl 10 mg PO TID PRN 08/07/15 [History] Fluticasone/Salmeterol [Advair 250-50 Diskus] 1 puff INHALATION RT-DAILY [History] L.acidoph,Paracasei, B.lactis [Probiotic] 1 cap PO DAILY 08/07/15 [History] Nitroglycerin Sl Tabs [Nitrostat] 0.4 mg SUBLINGUAL Q5M PRN #25 tab 08/11/15 [Rx ] Atorvastatin [Lipitor] 40 mg PO HS 05/02/17 [History] Lansoprazole [Prevacid] 30 mg PO DAILY 05/02/17 [History] Simponi 100 mg IN Q30D 05/02/17 [History] Ubidecarenone [Co Q-10] 100 mg PO HS 05/02/17 [History] Albuterol Nebulized [Ventolin Nebulized] 2.5 mg INHALATION RT-Q6H PRN 05/04/17 [ History] Aspirin [Adult Low Dose Aspirin EC] 81 mg PO DAILY 05/04/17 [History] HYDROcodone/APAP 5-325MG [[place] 5-325] 1 tab PO Q6HR PRN 05/04/17 [History] Atenolol [Tenormin] 25 mg PO DAILY #0 05/06/17 [Rx] Vancomycin Oral Solution 250 mg PO Q6HR #10 day 05/06/17 [Rx] Follow up Appointment(s)/Referral(s): Vick Luciano MD [Primary Care Provider] - 3 Days Discharge Disposition: HOME SELF-CARE
== END 2017-05-06 14:43 | disposition home or self-care (01) | DRG 372 ==
LOC: EC 17:17 → 4MS4W 18:46
PROVIDERS: ADMIT Hospitalist; ATTEND Hospitalist
DX: A04.72 Enterocolitis due to Clostridium difficile, not specified as recurrent (principal); I82.621 Acute embolism and thrombosis of deep veins of right upper extremity; K51.90 Ulcerative colitis, unspecified, without complications; K92.2 Gastrointestinal hemorrhage, unspecified; I10 Essential (primary) hypertension; E78.5 Hyperlipidemia, unspecified; E86.0 Dehydration; I25.10 Atherosclerotic heart disease of native coronary artery without angina pectoris; J44.9 Chronic obstructive pulmonary disease, unspecified; K21.9 Gastro-esophageal reflux disease without esophagitis; N40.0 Benign prostatic hyperplasia without lower urinary tract symptoms; R79.1 Abnormal coagulation profile; G43.909 Migraine, unspecified, not intractable, without status migrainosus; T45.515A Adverse effect of anticoagulants, initial encounter; Z79.01 Long term (current) use of anticoagulants; Z79.02 Long term (current) use of antithrombotics/antiplatelets; Z79.82 Long term (current) use of aspirin; Z79.899 Other long term (current) drug therapy; Z85.828 Personal history of other malignant neoplasm of skin; Z95.5 Presence of coronary angioplasty implant and graft; Z88.0 Allergy status to penicillin; Z88.7 Allergy status to serum and vaccine; Z88.8 Allergy status to other drugs, medicaments and biological substances; Z91.041 Radiographic dye allergy status; Z86.718 Personal history of other venous thrombosis and embolism; Z82.49 Family history of ischemic heart disease and other diseases of the circulatory system; Y92.009 Unspecified place in unspecified non-institutional (private) residence as the place of occurrence of the external cause
CPT/HCPCS: 36415; 80048; 80053; 85025; 85027; 85610; 85730; 86580; 87045; 87046; 87324; 87329; 93005; 94640; 96360; 99285

== ENCOUNTER → 2017-05-04 | Outpatient (CLI) | payer MEDICARE, BC ==
[2017-05-04 11:11] LABS: Basophils % (A) 0 %; CH 30.3; CHCM 32.3; Eosinophils # (A) 0.2 k/uL (0-0.7); Eosinophils % (A) 1 %; HCT 49.5 % (39.0-53.0); HDW 2.78; HGB 16.2 gm/dL (13.0-17.5); Luc # (Auto) 0.24; Luc % (Auto) 2; Lymphocytes # (A) 1.8 k/uL (1.0-4.8); Lymphocytes % (A) 16 %; MCH 30.8 pg (25.0-35.0); MCHC 32.6 g/dL (31.0-37.0); MCV 94.3 fL (80.0-100.0); Mean Platelet Volume 6.6; Monocytes # (A) 0.5 k/uL (0-1.0); Monocytes % (A) 5 %; Neutrophils # (A) 8.6 k/uL (1.3-7.7); Neutrophils % (A) 76 %; RBC 5.25 m/uL (4.30-5.90); RDW 12.8 % (11.5-15.5); WBC 11.4 k/uL (3.8-10.6); WBC (Perox) 11.45
[2017-05-04 11:31] LABS: ALT 45 U/L (21-72); AST 38 U/L (17-59); Alkaline Phosphatase 96 U/L (38-126); Anion Gap 10 mmol/L; Blood Urea Nitrogen 9 mg/dL (9-20); Carbon Dioxide 28 mmol/L (22-30); Chloride 101 mmol/L (98-107); Glucose 116 mg/dL (74-99); Non-African American GFR(MDRD) >60 (>60 ml/min/1.73 sqM); Potassium 3.7 mmol/L (3.5-5.1); Sodium 139 mmol/L (137-145); Total Bilirubin 0.4 mg/dL (0.2-1.3); Total Protein 6.6 g/dL (6.3-8.2)
== END | disposition home or self-care (01) ==
LOC: LABWHC1 10:22
PROVIDERS: ATTEND Physician Assistant
DX: K51.911 Ulcerative colitis, unspecified with rectal bleeding (principal); R19.7 Diarrhea, unspecified
CPT/HCPCS: 36415; 80053; 85025; 87045; 87046; 87324; 87329

== ENCOUNTER → 2017-06-20 | Outpatient (CLI) | payer MEDICARE, BC ==
[2017-06-20 07:20] LABS: Basophils % (A) 1 %; CH 30.3; CHCM 32.5; Eosinophils # (A) 0.3 k/uL (0-0.7); Eosinophils % (A) 3 %; HCT 48.3 % (39.0-53.0); HDW 2.57; HGB 15.7 gm/dL (13.0-17.5); Luc # (Auto) 0.27; Luc % (Auto) 4; Lymphocytes # (A) 2.7 k/uL (1.0-4.8); Lymphocytes % (A) 37 %; MCH 30.6 pg (25.0-35.0); MCHC 32.6 g/dL (31.0-37.0); MCV 93.7 fL (80.0-100.0); Mean Platelet Volume 6.8; Monocytes # (A) 0.6 k/uL (0-1.0); Monocytes % (A) 8 %; Neutrophils # (A) 3.6 k/uL (1.3-7.7); Neutrophils % (A) 48 %; RBC 5.15 m/uL (4.30-5.90); RDW 13.1 % (11.5-15.5); WBC 7.4 k/uL (3.8-10.6); WBC (Perox) 7.46
[2017-06-20 07:45] LABS: ALT 39 U/L (21-72); AST 39 U/L (17-59); Alkaline Phosphatase 63 U/L (38-126); Anion Gap 9 mmol/L; Blood Urea Nitrogen 17 mg/dL (9-20); Calcium 9.1 mg/dL (8.4-10.2); Carbon Dioxide 27 mmol/L (22-30); Chloride 105 mmol/L (98-107); Cholesterol 160 mg/dL (<200); Glucose 108 mg/dL (74-99); HDL Cholesterol 41 mg/dL (40-60); Non-African American GFR(MDRD) >60 (>60 ml/min/1.73 sqM); Potassium 4.5 mmol/L (3.5-5.1); Sodium 141 mmol/L (137-145); Total Bilirubin 0.7 mg/dL (0.2-1.3); Total Protein 7.3 g/dL (6.3-8.2)
== END | disposition home or self-care (01) ==
LOC: LABWHC1 06:33
PROVIDERS: ATTEND Internal Medicine
DX: Z00.00 Encounter for general adult medical examination without abnormal findings (principal); E78.5 Hyperlipidemia, unspecified; Z12.5 Encounter for screening for malignant neoplasm of prostate
CPT/HCPCS: 84439; 80061; 80053; 84443; 85025; 36415; G0103

== ENCOUNTER 2018-05-15 14:03 | Outpatient (CLI) | payer MEDICARE, BC ==
[2018-05-15 14:27] VITALS: BP 158/87; PULSE 54; RESP 16; TEMP 97.6
== END 2018-05-18 11:34 | disposition home or self-care (01) ==
LOC: PROCWHC3 14:03
PROVIDERS: ATTEND Internal Medicine Gastroenterology
DX: K51.50 Left sided colitis without complications (principal)
CPT/HCPCS: 86580

== ENCOUNTER → 2018-06-27 | Outpatient (CLI) | payer MEDICARE, BC ==
[2018-06-27 08:48] LABS: Basophils % (A) 0 %; Eosinophils # (A) 0.2 k/uL (0-0.7); Eosinophils % (A) 3 %; HCT 49.6 % (39.0-53.0); HGB 16.5 gm/dL (13.0-17.5); Lymphocytes # (A) 2.6 k/uL (1.0-4.8); Lymphocytes % (A) 36 %; MCH 31.2 pg (25.0-35.0); MCHC 33.2 g/dL (31.0-37.0); MCV 93.8 fL (80.0-100.0); Mean Platelet Volume 6.6; Monocytes # (A) 0.4 k/uL (0-1.0); Monocytes % (A) 6 %; Neutrophils # (A) 3.6 k/uL (1.3-7.7); Neutrophils % (A) 51 %; Platelet Count 168 k/uL (150-450); RBC 5.29 m/uL (4.30-5.90); RDW 12.7 % (11.5-15.5)
[2018-06-27 17:16] LABS: Albumin 4.2 g/dL (3.80-4.90); Albumin/Globulin Ratio 1.75 (1.20-2.10); Anion Gap 4.1 mmol/L (4.00-12.00); Calcium 9.1 mg/dL (8.7-10.3); Carbon Dioxide 27.9 mmol/L (21.6-31.8); Globulin 2.4 g/dL (2.1-3.7); Potassium 4.6 mmol/L (3.5-5.5); Total Bilirubin 0.9 mg/dL (0.2-1.2); Total Protein 6.6 g/dL (6.2-8.2)
[2018-06-27 17:20] LABS: T4, Free (Free Thyroxine) 1.2 ng/dL (0.80-1.80)
== END | disposition home or self-care (01) ==
LOC: LABWHC1 08:13
PROVIDERS: ATTEND Internal Medicine
DX: Z00.00 Encounter for general adult medical examination without abnormal findings (principal); K52.9 Noninfective gastroenteritis and colitis, unspecified; I25.10 Atherosclerotic heart disease of native coronary artery without angina pectoris; E78.5 Hyperlipidemia, unspecified; I10 Essential (primary) hypertension; Z12.5 Encounter for screening for malignant neoplasm of prostate
CPT/HCPCS: 84439; 80061; 80053; 84443; 85025; 36415; G0103

== ENCOUNTER → 2019-05-14 | Outpatient (CLI) | payer MEDICARE | END | disposition home or self-care (01) | LOC: LABWHC1 10:32 | PROVIDERS: ATTEND Internal Medicine Gastroenterology | DX: K51.20 Ulcerative (chronic) proctitis without complications (principal) | CPT/HCPCS: 36415; 86480 ==

== ENCOUNTER → 2019-05-23 | Outpatient (CLI) | payer MEDICARE ==
--- NOTE | 2019-05-23 11:48 | XR ---
EXAMINATION TYPE: XR chest 2V DATE OF EXAM: 05/23/2019 COMPARISON: 12/20/11 HISTORY: Shortness of breath TECHNIQUE: Frontal and lateral views of the chest are obtained. FINDINGS: Scattered senescent parenchymal changes noted. Hyperinflation compatible with COPD. No evidence for infiltrate. No evidence for atelectasis. Heart size is stable. Mediastinal structures are stable and grossly unremarkable. No evidence for hilar prominence. Degenerative changes dorsal spine. IMPRESSION: 1. No evidence for acute pulmonary disease.
== END | disposition home or self-care (01) ==
LOC: LABWHC1 11:15
PROVIDERS: ATTEND Internal Medicine Gastroenterology
DX: R76.12 Nonspecific reaction to cell mediated immunity measurement of gamma interferon antigen response without active tuberculosis (principal)
CPT/HCPCS: 71046

== ENCOUNTER → 2019-09-18 | Outpatient (CLI) | payer MEDICARE ==
[2019-09-18 11:12] LABS: Basophils % (A) 0 %; Eosinophils # (A) 0.3 k/uL (0-0.7); Eosinophils % (A) 4 %; HCT 52.5 % (39.0-53.0); HGB 17.1 gm/dL (13.0-17.5); Lymphocytes # (A) 2.7 k/uL (1.0-4.8); Lymphocytes % (A) 36 %; MCH 30.3 pg (25.0-35.0); MCHC 32.5 g/dL (31.0-37.0); MCV 93.2 fL (80.0-100.0); Mean Platelet Volume 7.2; Monocytes # (A) 0.4 k/uL (0-1.0); Monocytes % (A) 6 %; Neutrophils # (A) 3.8 k/uL (1.3-7.7); Neutrophils % (A) 51 %; Platelet Count 167 k/uL (150-450); RBC 5.64 m/uL (4.30-5.90); RDW 12.8 % (11.5-15.5); WBC 7.4 k/uL (3.8-10.6)
[2019-09-18 11:14] LABS: INR 1.9 (<1.2); Prothrombin Time 18.1 sec (9.0-12.0)
[2019-09-18 16:09] LABS: African American GFR (CKD) 81.2 (60.0-200.0); Albumin 4.3 g/dL (3.80-4.90); Albumin/Globulin Ratio 1.65 (1.60-3.17); Anion Gap 5.4 mmol/L (4.00-12.00); BUN/Creat Ratio 12.73 Ratio (12.00-20.00); Bilirubin, Conjugated 0.2 mg/dL (0.20-0.40); Bilirubin,Unconjugated 0.5 mg/dL; Calcium 9.5 mg/dL (8.7-10.3); Carbon Dioxide 30.6 mmol/L (21.6-31.8); Chol/HDL Ratio 4.08; Globulin 2.6 g/dL (1.6-3.3); LDL Cholesterol,Calculated 84.8 mg/dL (0.0-131.0); Non-African American GFR(CKD) 70.1 (60.0-200.0); Total Bilirubin 0.7 mg/dL (0.2-1.2); Total Protein 6.9 g/dL (6.2-8.2); VLDL Calculation 35.2 mg/dL (5.00-40.00)
[2019-09-18 16:17] LABS: T4, Free (Free Thyroxine) 1.6 ng/dL (0.80-1.80)
[2019-09-18 18:14] LABS: Hemoglobin A1C 5.4 % (4.0-6.0)
== END | disposition home or self-care (01) ==
LOC: LABWHC1 09:37
PROVIDERS: ATTEND Internal Medicine
DX: Z00.00 Encounter for general adult medical examination without abnormal findings (principal); I10 Essential (primary) hypertension; E78.5 Hyperlipidemia, unspecified; K52.9 Noninfective gastroenteritis and colitis, unspecified; Z12.5 Encounter for screening for malignant neoplasm of prostate; Z79.01 Long term (current) use of anticoagulants
CPT/HCPCS: 84439; 80061; 80053; 82248; 84443; 85025; 85610; 83036; 36415; G0103

== ENCOUNTER → 2020-01-16 | Outpatient (CLI) | payer MEDICARE ==
[2020-01-16 08:06] LABS: Basophils % (A) 0 %; Eosinophils # (A) 0.3 k/uL (0-0.7); Eosinophils % (A) 4 %; HCT 49.8 % (39.0-53.0); Lymphocytes # (A) 3.3 k/uL (1.0-4.8); Lymphocytes % (A) 42 %; MCH 30.7 pg (25.0-35.0); MCV 95.8 fL (80.0-100.0); Mean Platelet Volume 7.1; Monocytes # (A) 0.5 k/uL (0-1.0); Monocytes % (A) 7 %; Neutrophils # (A) 3.4 k/uL (1.3-7.7); Neutrophils % (A) 44 %; Platelet Count 171 k/uL (150-450); RDW 13.1 % (11.5-15.5); WBC 7.8 k/uL (3.8-10.6)
[2020-01-16 12:43] LABS: African American GFR (CKD) 72.6 (60.0-200.0); Albumin 4.2 g/dL (3.80-4.90); Albumin/Globulin Ratio 1.5 (1.60-3.17); Anion Gap 7.1 mmol/L (4.00-12.00); BUN/Creat Ratio 16.67 Ratio (12.00-20.00); C Reactive Protein 0.7 mg/dL (0.0-0.8); Calcium 9.1 mg/dL (8.7-10.3); Carbon Dioxide 27.9 mmol/L (21.6-31.8); Globulin 2.8 g/dL (1.6-3.3); Non-African American GFR(CKD) 62.6 (60.0-200.0); Potassium 4.2 mmol/L (3.5-5.5); Total Bilirubin 0.5 mg/dL (0.3-1.2)
== END | disposition home or self-care (01) ==
LOC: LABWHC1 07:04
PROVIDERS: ATTEND Internal Medicine Gastroenterology
DX: K51.20 Ulcerative (chronic) proctitis without complications (principal)
CPT/HCPCS: 36415; 80053; 85025; 86140

== ENCOUNTER → 2020-05-18 | Outpatient (CLI) | payer MEDICARE ==
[2020-05-18 11:02] LABS: Basophils % (A) 0 %; Eosinophils # (A) 0.2 k/uL (0-0.7); Eosinophils % (A) 2 %; HGB 17.7 gm/dL (13.0-17.5); Lymphocytes # (A) 1.9 k/uL (1.0-4.8); Lymphocytes % (A) 27 %; MCH 31.9 pg (25.0-35.0); MCHC 32.9 g/dL (31.0-37.0); MCV 97.1 fL (80.0-100.0); Mean Platelet Volume 7.1; Monocytes # (A) 0.5 k/uL (0-1.0); Monocytes % (A) 7 %; Neutrophils # (A) 4.3 k/uL (1.3-7.7); Neutrophils % (A) 61 %; Platelet Count 169 k/uL (150-450); RBC 5.56 m/uL (4.30-5.90); RDW 12.8 % (11.5-15.5)
[2020-05-18 15:19] LABS: ALT 36 U/L (10-49); AST 46 U/L (14-35); African American GFR (CKD) 80.6 (60.0-200.0); Albumin/Globulin Ratio 1.43 (1.60-3.17); Alkaline Phosphatase 70 U/L (41-126); BUN/Creat Ratio 13.64 Ratio (12.00-20.00); C Reactive Protein <0.4 mg/dL (0.0-0.8); Calcium 9.8 mg/dL (8.7-10.3); Carbon Dioxide 28.9 mmol/L (21.6-31.8); Chloride 105 mmol/L (96-109); Glucose 111 mg/dL (70-110); Non-African American GFR(CKD) 69.6 (60.0-200.0); Sodium 140 mmol/L (135-145); Total Bilirubin 0.4 mg/dL (0.3-1.2); Total Protein 7.3 g/dL (6.2-8.2)
== END | disposition home or self-care (01) ==
LOC: LABWHC1 09:49
PROVIDERS: ATTEND Internal Medicine Gastroenterology
DX: K51.20 Ulcerative (chronic) proctitis without complications (principal)
CPT/HCPCS: 36415; 80053; 85025; 86140; 86480

== ENCOUNTER → 2020-07-27 | Outpatient (CLI) | payer MEDICARE ==
[2020-07-27 08:22] LABS: Basophils % (A) 1 %; Eosinophils # (A) 0.3 k/uL (0-0.7); Eosinophils % (A) 4 %; HCT 49.8 % (39.0-53.0); HGB 16.5 gm/dL (13.0-17.5); Lymphocytes # (A) 2.7 k/uL (1.0-4.8); Lymphocytes % (A) 35 %; MCH 31.7 pg (25.0-35.0); MCHC 33.2 g/dL (31.0-37.0); MCV 95.5 fL (80.0-100.0); Mean Platelet Volume 7.3; Monocytes # (A) 0.5 k/uL (0-1.0); Monocytes % (A) 6 %; Neutrophils # (A) 3.9 k/uL (1.3-7.7); Neutrophils % (A) 51 %; Platelet Count 158 k/uL (150-450); RBC 5.22 m/uL (4.30-5.90); RDW 12.5 % (11.5-15.5); WBC 7.7 k/uL (3.8-10.6)
[2020-07-27 10:35] LABS: African American GFR (CKD) 80.6 (60.0-200.0); Albumin 4.3 g/dL (3.80-4.90); Albumin/Globulin Ratio 1.59 (1.60-3.17); Anion Gap 2.7 mmol/L (4.00-12.00); BUN/Creat Ratio 12.73 Ratio (12.00-20.00); C Reactive Protein 0.9 mg/dL (0.0-0.8); Carbon Dioxide 32.3 mmol/L (21.6-31.8); Globulin 2.7 g/dL (1.6-3.3); Non-African American GFR(CKD) 69.6 (60.0-200.0); Potassium 4.4 mmol/L (3.5-5.5); Total Bilirubin 0.5 mg/dL (0.3-1.2)
[2020-07-27 10:42] LABS: Ferritin 110.8 ng/mL (22.0-322.0)
== END | disposition home or self-care (01) ==
LOC: LABWHC1 07:30
PROVIDERS: ATTEND Internal Medicine Gastroenterology
DX: K51.90 Ulcerative colitis, unspecified, without complications (principal)
CPT/HCPCS: 36415; 80053; 82728; 83540; 83550; 85025; 85610; 86140

== ENCOUNTER → 2020-10-27 | Outpatient (CLI) | payer MEDICARE ==
[2020-10-27 11:24] LABS: Basophils # (A) 0.03 X 10*3/uL (0.00-0.10); Basophils % (A) 0.4 %; Eosinophils # (A) 0.27 X 10*3/uL (0.04-0.35); Eosinophils % (A) 3.3 %; HCT 51.3 % (39.6-50.0); Lymphocytes # (A) 3.11 X 10*3/uL (0.90-5.00); MCHC 33.1 g/dL (32.0-37.0); MCV 96.4 fL (80.0-97.0); Monocytes # (A) 0.83 X 10*3/uL (0.20-1.00); Monocytes % (A) 10.1 %; Neutrophils # (A) 3.91 X 10*3/uL (1.80-7.70); Neutrophils % (A) 47.8 %; Platelet Count 171 X 10*3/uL (140-440); RBC 5.32 X 10*6/uL (4.40-5.60); RDW 12.5 % (11.5-14.5); WBC 8.18 X 10*3/uL (4.50-10.00)
[2020-10-27 11:36] LABS: African American GFR (CKD) 72.6 (60.0-200.0); Albumin 4.5 g/dL (3.80-4.90); Albumin/Globulin Ratio 1.61 (1.60-3.17); Anion Gap 8.7 mmol/L (4.00-12.00); BUN/Creat Ratio 10.83 Ratio (12.00-20.00); C Reactive Protein 0.5 mg/dL (0.0-0.8); Calcium 9.4 mg/dL (8.7-10.3); Carbon Dioxide 28.3 mmol/L (21.6-31.8); Chol/HDL Ratio 4.49; Globulin 2.8 g/dL (1.6-3.3); LDL Cholesterol,Calculated 49.6 mg/dL (0.0-131.0); Non-African American GFR(CKD) 62.6 (60.0-200.0); Potassium 4.5 mmol/L (3.5-5.5); Total Bilirubin 0.5 mg/dL (0.3-1.2); Total Protein 7.3 g/dL (6.2-8.2); VLDL Calculation 79.4 mg/dL (5.00-40.00)
[2020-10-27 11:44] LABS: T4, Free (Free Thyroxine) 1.2 ng/dL (0.80-1.80)
[2020-10-27 11:48] LABS: PSA Annual Screen 0.8 ng/mL (0.0-4.0)
== END | disposition home or self-care (01) ==
LOC: LABWHC1 07:10
PROVIDERS: ATTEND Surgery
DX: Z00.00 Encounter for general adult medical examination without abnormal findings (principal); Z12.5 Encounter for screening for malignant neoplasm of prostate; I25.10 Atherosclerotic heart disease of native coronary artery without angina pectoris; E78.2 Mixed hyperlipidemia; N40.0 Benign prostatic hyperplasia without lower urinary tract symptoms; K52.9 Noninfective gastroenteritis and colitis, unspecified; J45.909 Unspecified asthma, uncomplicated
CPT/HCPCS: 84439; 80061; 80053; 84443; 85025; 86140; 36415; G0103

== ENCOUNTER → 2021-01-14 | Outpatient (CLI) | payer MEDICARE ==
[2021-01-14 20:08] LABS: Basophils # (A) 0.03 X 10*3/uL (0.00-0.10); Basophils % (A) 0.4 %; Eosinophils # (A) 0.18 X 10*3/uL (0.04-0.35); Eosinophils % (A) 2.2 %; HCT 51.1 % (39.6-50.0); HGB 16.4 g/dL (13.0-17.0); Lymphocytes # (A) 3.09 X 10*3/uL (0.90-5.00); Lymphocytes % (A) 36.9 %; MCH 31.5 pg (27.0-32.0); MCHC 32.1 g/dL (32.0-37.0); MCV 98.1 fL (80.0-97.0); Mean Platelet Volume 11.4 fL (9.5-12.2); Monocytes # (A) 0.96 X 10*3/uL (0.20-1.00); Monocytes % (A) 11.5 %; Neutrophils % (A) 48.9 %; Platelet Count 189 X 10*3/uL (140-440); RBC 5.21 X 10*6/uL (4.40-5.60); RDW 12.4 % (11.5-14.5); WBC 8.37 X 10*3/uL (4.50-10.00)
[2021-01-14 22:46] LABS: ALT 35 U/L (10-49); AST 50 U/L (14-35); African American GFR (CKD) 80.1 (60.0-200.0); Albumin/Globulin Ratio 1.43 (1.60-3.17); Alkaline Phosphatase 61 U/L (41-126); BUN/Creat Ratio 12.73 Ratio (12.00-20.00); C Reactive Protein <0.4 mg/dL (0.0-0.8); Carbon Dioxide 18.9 mmol/L (21.6-31.8); Chloride 107 mmol/L (96-109); Glucose 107 mg/dL (70-110); Non-African American GFR(CKD) 69.1 (60.0-200.0); Potassium 4.4 mmol/L (3.5-5.5); Sodium 139 mmol/L (135-145); Total Bilirubin 0.5 mg/dL (0.3-1.2); Total Protein 7.3 g/dL (6.2-8.2)
== END | disposition home or self-care (01) ==
LOC: LABWHC1 11:41
PROVIDERS: ATTEND Internal Medicine Gastroenterology
DX: I73.9 Peripheral vascular disease, unspecified (principal)
CPT/HCPCS: 36415; 80053; 85025; 86140

== ENCOUNTER → 2021-04-16 | Outpatient (CLI) | payer MEDICARE ==
[2021-04-16 10:44] LABS: Basophils # (A) 0.03 X 10*3/uL (0.00-0.10); Basophils % (A) 0.4 %; Eosinophils # (A) 0.19 X 10*3/uL (0.04-0.35); Eosinophils % (A) 2.7 %; HCT 49.8 % (39.6-50.0); Lymphocytes # (A) 2.72 X 10*3/uL (0.90-5.00); MCH 30.4 pg (27.0-32.0); MCHC 32.1 g/dL (32.0-37.0); MCV 94.7 fL (80.0-97.0); Mean Platelet Volume 10.1 fL (9.5-12.2); Monocytes # (A) 0.84 X 10*3/uL (0.20-1.00); Monocytes % (A) 11.7 %; Neutrophils # (A) 3.35 X 10*3/uL (1.80-7.70); Neutrophils % (A) 46.8 %; Platelet Count 168 X 10*3/uL (140-440); RBC 5.26 X 10*6/uL (4.40-5.60); RDW 12.4 % (11.5-14.5); WBC 7.16 X 10*3/uL (4.50-10.00)
[2021-04-17 00:16] LABS: ALT 28 U/L (10-49); AST 40 U/L (14-35); African American GFR (CKD) 72.1 (60.0-200.0); Albumin/Globulin Ratio 1.47 (1.60-3.17); Alkaline Phosphatase 65 U/L (41-126); BUN/Creat Ratio 15.83 Ratio (12.00-20.00); C Reactive Protein <0.4 mg/dL (0.0-0.8); Calcium 9.4 mg/dL (8.7-10.3); Carbon Dioxide 24.5 mmol/L (21.6-31.8); Chloride 108 mmol/L (96-109); Chol/HDL Ratio 4.85; Cholesterol 189 mg/dL (0-200); Glucose 91 mg/dL (70-110); LDL Cholesterol,Calculated 108.6 mg/dL (0.0-131.0); Non-African American GFR(CKD) 62.2 (60.0-200.0); Potassium 4.7 mmol/L (3.5-5.5); Sodium 143 mmol/L (135-145); Total Bilirubin 0.5 mg/dL (0.3-1.2); Total Protein 7.4 g/dL (6.2-8.2)
== END | disposition home or self-care (01) ==
LOC: LABWHC1 07:12
PROVIDERS: ATTEND Internal Medicine Gastroenterology
DX: Z00.00 Encounter for general adult medical examination without abnormal findings (principal); K51.90 Ulcerative colitis, unspecified, without complications
CPT/HCPCS: 36415; 80053; 80061; 84153; 84439; 84443; 85025; 86140

== ENCOUNTER → 2021-05-27 | Outpatient (CLI) | payer MEDICARE ==
[2021-05-27 11:23] LABS: INR 2.01 (0.90-1.11); Prothrombin Time 20.9 sec (9.9-11.9)
== END | disposition home or self-care (01) ==
LOC: LABWHC1 07:06
PROVIDERS: ATTEND Internal Medicine
DX: I77.9 Disorder of arteries and arterioles, unspecified (principal)
CPT/HCPCS: 36415; 85610

== ENCOUNTER → 2021-06-30 | Outpatient (CLI) | payer MEDICARE ==
[2021-06-30 11:40] LABS: Basophils # (A) 0.04 X 10*3/uL (0.00-0.10); Basophils % (A) 0.5 %; Eosinophils # (A) 0.28 X 10*3/uL (0.04-0.35); Eosinophils % (A) 3.4 %; HGB 15.9 g/dL (13.0-17.0); Lymphocytes % (A) 37.8 %; MCH 31.2 pg (27.0-32.0); MCHC 32.4 g/dL (32.0-37.0); MCV 96.3 fL (80.0-97.0); Mean Platelet Volume 10.8 fL (9.5-12.2); Monocytes # (A) 0.77 X 10*3/uL (0.20-1.00); Monocytes % (A) 9.4 %; Neutrophils # (A) 3.99 X 10*3/uL (1.80-7.70); Neutrophils % (A) 48.5 %; Platelet Count 175 X 10*3/uL (140-440); RBC 5.09 X 10*6/uL (4.40-5.60); RDW 12.7 % (11.5-14.5); WBC 8.21 X 10*3/uL (4.50-10.00)
[2021-06-30 11:50] LABS: African American GFR (CKD) 80.1 (60.0-200.0); Albumin 4.3 g/dL (3.8-4.9); Albumin/Globulin Ratio 1.48 (1.60-3.17); Anion Gap 9.4 mmol/L (10.00-18.00); BUN/Creat Ratio 12.09 Ratio (12.00-20.00); Blood Urea Nitrogen 13.3 mg/dL (9.0-27.0); Calcium 9.2 mg/dL (8.7-10.3); Carbon Dioxide 27.6 mmol/L (20.0-27.5); Globulin 2.9 g/dL (1.6-3.3); Non-African American GFR(CKD) 69.1 (60.0-200.0); Potassium 4.5 mmol/L (3.5-5.5); Total Bilirubin 0.5 mg/dL (0.30-1.20); Total Protein 7.2 g/dL (6.2-8.2)
== END | disposition home or self-care (01) ==
LOC: LABWHC1 07:02
PROVIDERS: ATTEND Internal Medicine Gastroenterology
DX: K50.90 Crohn's disease, unspecified, without complications (principal); I73.9 Peripheral vascular disease, unspecified
CPT/HCPCS: 36415; 80053; 85025; 86480

== ENCOUNTER → 2021-09-30 | Outpatient (CLI) | payer MEDICARE ==
[2021-09-30 10:46] LABS: ALT 27 U/L (10-49); AST 34 U/L (14-35); African American GFR (CKD) 80.1 (60.0-200.0); Albumin 4.4 g/dL (3.8-4.9); Albumin/Globulin Ratio 1.33 (1.60-3.17); Alkaline Phosphatase 65 U/L (41-126); BUN/Creat Ratio 12.45 Ratio (12.00-20.00); Blood Urea Nitrogen 13.7 mg/dL (9.0-27.0); C Reactive Protein <0.30 mg/dL (0.00-0.80); Calcium 9.1 mg/dL (8.7-10.3); Carbon Dioxide 26.1 mmol/L (20.0-27.5); Chloride 104 mmol/L (96-109); Globulin 3.3 g/dL (1.6-3.3); Glucose 109 mg/dL (70-110); Non-African American GFR(CKD) 69.1 (60.0-200.0); Potassium 4.4 mmol/L (3.5-5.5); Sodium 140 mmol/L (135-145); Total Protein 7.7 g/dL (6.2-8.2)
[2021-09-30 11:52] LABS: Basophils # (A) 0.04 X 10*3/uL (0.00-0.10); Basophils % (A) 0.6 %; Eosinophils # (A) 0.24 X 10*3/uL (0.04-0.35); Eosinophils % (A) 3.7 %; HCT 49.8 % (39.6-50.0); HGB 15.9 g/dL (13.0-17.0); Immature Grans, Automated 0.3 %; Lymphocytes # (A) 2.62 X 10*3/uL (0.90-5.00); Lymphocytes % (A) 40.4 %; MCH 30.9 pg (27.0-32.0); MCHC 31.9 g/dL (32.0-37.0); MCV 96.9 fL (80.0-97.0); Mean Platelet Volume 10.5 fL (9.5-12.2); Monocytes % (A) 12.3 %; NRBC Per 100 WBC 0 /100 WBCS (0.0-0.0); Neutrophils # (A) 2.77 X 10*3/uL (1.80-7.70); Neutrophils % (A) 42.7 %; Platelet Count 180 X 10*3/uL (140-440); RBC 5.14 X 10*6/uL (4.40-5.60); RDW 12.6 % (11.5-14.5); WBC 6.49 X 10*3/uL (4.50-10.00)
== END | disposition home or self-care (01) ==
LOC: LABWHC1 07:04
PROVIDERS: ATTEND Internal Medicine Gastroenterology
DX: K50.90 Crohn's disease, unspecified, without complications (principal)
CPT/HCPCS: 36415; 80053; 85025; 86140

== ENCOUNTER → 2022-01-27 | Outpatient (CLI) | payer MEDICARE ==
[2022-01-27 10:31] LABS: Basophils # (A) 0.03 X 10*3/uL (0.00-0.10); Basophils % (A) 0.5 %; Eosinophils # (A) 0.22 X 10*3/uL (0.04-0.35); Eosinophils % (A) 3.7 %; HCT 48.7 % (39.6-50.0); HGB 15.4 g/dL (13.0-17.0); Immature Grans, Automated 0.2 %; Lymphocytes # (A) 2.64 X 10*3/uL (0.90-5.00); Lymphocytes % (A) 44.4 %; MCH 30.3 pg (27.0-32.0); MCHC 31.6 g/dL (32.0-37.0); MCV 95.9 fL (80.0-97.0); Mean Platelet Volume 10.5 fL (9.5-12.2); Monocytes # (A) 0.66 X 10*3/uL (0.20-1.00); Monocytes % (A) 11.1 %; NRBC Per 100 WBC 0 /100 WBCS (0.0-0.0); Neutrophils # (A) 2.39 X 10*3/uL (1.80-7.70); Neutrophils % (A) 40.1 %; Platelet Count 165 X 10*3/uL (140-440); RBC 5.08 X 10*6/uL (4.40-5.60); RDW 12.3 % (11.5-14.5); WBC 5.95 X 10*3/uL (4.50-10.00)
[2022-01-27 10:47] LABS: African American GFR (CKD) 89.2 (60.0-200.0); Albumin 4.3 g/dL (3.8-4.9); Albumin/Globulin Ratio 1.43 (1.60-3.17); Anion Gap 9.8 mmol/L (10.00-18.00); C Reactive Protein 0.8 mg/dL (0.00-0.80); Carbon Dioxide 28.2 mmol/L (20.0-27.5); Potassium 4.7 mmol/L (3.5-5.5); Total Bilirubin 0.5 mg/dL (0.30-1.20); Total Protein 7.3 g/dL (6.2-8.2)
== END | disposition home or self-care (01) ==
LOC: LABWHC1 06:59
PROVIDERS: ATTEND Internal Medicine Gastroenterology
DX: K50.90 Crohn's disease, unspecified, without complications (principal)
CPT/HCPCS: 36415; 80053; 85025; 86140

== ENCOUNTER → 2022-04-11 | Outpatient (CLI) | payer MEDICARE ==
[2022-04-11 10:32] LABS: Basophils # (A) 0.04 X 10*3/uL (0.00-0.10); Basophils % (A) 0.5 %; Eosinophils # (A) 0.25 X 10*3/uL (0.04-0.35); Eosinophils % (A) 2.9 %; HCT 47.9 % (39.6-50.0); HGB 16.1 g/dL (13.0-17.0); Immature Grans, Automated 0.3 %; Lymphocytes # (A) 3.15 X 10*3/uL (0.90-5.00); MCH 31.7 pg (27.0-32.0); MCHC 33.6 g/dL (32.0-37.0); MCV 94.3 fL (80.0-97.0); Mean Platelet Volume 10.2 fL (9.5-12.2); Monocytes # (A) 0.88 X 10*3/uL (0.20-1.00); NRBC Per 100 WBC 0 /100 WBCS (0.0-0.0); Neutrophils # (A) 4.41 X 10*3/uL (1.80-7.70); Neutrophils % (A) 50.3 %; Platelet Count 183 X 10*3/uL (140-440); RBC 5.08 X 10*6/uL (4.40-5.60); RDW 12.5 % (11.5-14.5); WBC 8.76 X 10*3/uL (4.50-10.00)
[2022-04-11 10:48] LABS: African American GFR (CKD) 79.5 (60.0-200.0); Albumin 4.1 g/dL (3.8-4.9); Albumin/Globulin Ratio 1.24 (1.60-3.17); Anion Gap 9.2 mmol/L (10.00-18.00); BUN/Creat Ratio 14.09 Ratio (12.00-20.00); Blood Urea Nitrogen 15.5 mg/dL (9.0-27.0); C Reactive Protein 0.6 mg/dL (0.00-0.80); Calcium 8.8 mg/dL (8.7-10.3); Carbon Dioxide 26.8 mmol/L (20.0-27.5); Globulin 3.3 g/dL (1.6-3.3); Non-African American GFR(CKD) 68.6 (60.0-200.0); Potassium 4.4 mmol/L (3.5-5.5); Total Bilirubin 0.3 mg/dL (0.30-1.20); Total Protein 7.4 g/dL (6.2-8.2)
== END | disposition home or self-care (01) ==
LOC: LABWHC1 06:59
PROVIDERS: ATTEND Internal Medicine Gastroenterology
DX: Z00.00 Encounter for general adult medical examination without abnormal findings (principal); Z79.899 Other long term (current) drug therapy
CPT/HCPCS: 36415; 80053; 85025; 86140

== ENCOUNTER → 2022-05-05 | Outpatient (CLI) | payer MEDICARE ==
[2022-05-05 11:10] LABS: ALT 25 U/L (10-49); AST 34 U/L (14-35); African American GFR (CKD) 89.2 (60.0-200.0); Albumin/Globulin Ratio 1.29 (1.60-3.17); Alkaline Phosphatase 64 U/L (41-126); Blood Urea Nitrogen 15.1 mg/dL (9.0-27.0); Carbon Dioxide 26.9 mmol/L (20.0-27.5); Chloride 106 mmol/L (96-109); Globulin 3.1 g/dL (1.6-3.3); Glucose 105 mg/dL (70-110); Potassium 4.4 mmol/L (3.5-5.5); Sodium 141 mmol/L (135-145); Total Protein 7.1 g/dL (6.2-8.2)
[2022-05-05 11:11] LABS: Chol/HDL Ratio 5.18 Ratio; LDL Cholesterol,Calculated 81.6 mg/dL (0.0-131.0)
[2022-05-05 11:33] LABS: Basophils # (A) 0.02 X 10*3/uL (0.00-0.10); Basophils % (A) 0.3 %; Eosinophils # (A) 0.17 X 10*3/uL (0.04-0.35); Eosinophils % (A) 2.8 %; HCT 48.3 % (39.6-50.0); HGB 15.8 g/dL (13.0-17.0); Immature Grans, Automated 0.3 %; Lymphocytes # (A) 2.83 X 10*3/uL (0.90-5.00); Lymphocytes % (A) 46.7 %; MCH 31.5 pg (27.0-32.0); MCHC 32.7 g/dL (32.0-37.0); MCV 96.4 fL (80.0-97.0); Mean Platelet Volume 10.5 fL (9.5-12.2); Monocytes # (A) 0.71 X 10*3/uL (0.20-1.00); Monocytes % (A) 11.7 %; NRBC Per 100 WBC 0 /100 WBCS (0.0-0.0); Neutrophils # (A) 2.31 X 10*3/uL (1.80-7.70); Neutrophils % (A) 38.2 %; Platelet Count 166 X 10*3/uL (140-440); RBC 5.01 X 10*6/uL (4.40-5.60); RDW 12.8 % (11.5-14.5); WBC 6.06 X 10*3/uL (4.50-10.00)
== END ==
LOC: LABWHC1 06:59
PROVIDERS: ATTEND Internal Medicine
DX: Z00.00 Encounter for general adult medical examination without abnormal findings (principal); E11.9 Type 2 diabetes mellitus without complications; E78.5 Hyperlipidemia, unspecified; Z12.5 Encounter for screening for malignant neoplasm of prostate
CPT/HCPCS: 84439; 80061; 80053; 84443; 85025; 83036; 36415; G0103

== ENCOUNTER → 2022-07-07 | Outpatient (CLI) | payer MEDICARE ==
[2022-07-07 10:37] LABS: Basophils # (A) 0.02 X 10*3/uL (0.00-0.10); Basophils % (A) 0.3 %; Eosinophils # (A) 0.19 X 10*3/uL (0.04-0.35); Eosinophils % (A) 2.5 %; HCT 50.3 % (39.6-50.0); HGB 16.8 g/dL (13.0-17.0); Immature Grans, Automated 0.4 %; Lymphocytes # (A) 2.97 X 10*3/uL (0.90-5.00); Lymphocytes % (A) 39.6 %; MCH 31.9 pg (27.0-32.0); MCHC 33.4 g/dL (32.0-37.0); MCV 95.4 fL (80.0-97.0); Mean Platelet Volume 10.7 fL (9.5-12.2); Monocytes # (A) 0.81 X 10*3/uL (0.20-1.00); Monocytes % (A) 10.8 %; NRBC Per 100 WBC 0 /100 WBCS (0.0-0.0); Neutrophils # (A) 3.48 X 10*3/uL (1.80-7.70); Neutrophils % (A) 46.4 %; Platelet Count 174 X 10*3/uL (140-440); RBC 5.27 X 10*6/uL (4.40-5.60); RDW 12.3 % (11.5-14.5)
[2022-07-07 10:48] LABS: African American GFR (CKD) 86.1 (60.0-200.0); Albumin 4.5 g/dL (3.8-4.9); Albumin/Globulin Ratio 1.51 (1.60-3.17); Anion Gap 9.9 mmol/L (10.00-18.00); BUN/Creat Ratio 15.63 Ratio (12.00-20.00); Blood Urea Nitrogen 16.1 mg/dL (9.0-27.0); C Reactive Protein 0.4 mg/dL (0.00-0.80); Calcium 9.2 mg/dL (8.7-10.3); Non-African American GFR(CKD) 74.3 (60.0-200.0); Potassium 4.5 mmol/L (3.5-5.5); Total Bilirubin 0.4 mg/dL (0.30-1.20); Total Protein 7.4 g/dL (6.2-8.2)
== END | disposition home or self-care (01) ==
LOC: LABWHC1 07:01
PROVIDERS: ATTEND Internal Medicine Gastroenterology
DX: K51.90 Ulcerative colitis, unspecified, without complications (principal)
CPT/HCPCS: 36415; 80053; 85025; 86140

== ENCOUNTER → 2022-12-27 | Outpatient (CLI) | payer MEDICARE ==
[2022-12-27 11:00] LABS: Basophils # (A) 0.03 X 10*3/uL (0.00-0.10); Basophils % (A) 0.4 %; Eosinophils # (A) 0.16 X 10*3/uL (0.04-0.35); Eosinophils % (A) 2.4 %; HGB 16.1 g/dL (13.0-17.0); Immature Grans, Automated 0.3 %; Lymphocytes # (A) 2.45 X 10*3/uL (0.90-5.00); Lymphocytes % (A) 36.4 %; MCH 31.2 pg (27.0-32.0); MCHC 32.2 g/dL (32.0-37.0); MCV 96.9 fL (80.0-97.0); Mean Platelet Volume 10.2 fL (9.5-12.2); Monocytes % (A) 10.4 %; NRBC Per 100 WBC 0 /100 WBCS (0.0-0.0); Neutrophils # (A) 3.38 X 10*3/uL (1.80-7.70); Neutrophils % (A) 50.1 %; Platelet Count 169 X 10*3/uL (140-440); RBC 5.16 X 10*6/uL (4.40-5.60); RDW 12.5 % (11.5-14.5); WBC 6.74 X 10*3/uL (4.50-10.00)
[2022-12-27 11:10] LABS: Albumin 4.2 g/dL (3.8-4.9); Albumin/Globulin Ratio 1.45 (1.60-3.17); Anion Gap 10.3 mmol/L (10.00-18.00); BUN/Creat Ratio 11.27 Ratio (12.00-20.00); Blood Urea Nitrogen 12.4 mg/dL (9.0-27.0); C Reactive Protein 0.5 mg/dL (0.00-0.80); Calcium 9.5 mg/dL (8.7-10.3); Carbon Dioxide 29.7 mmol/L (20.0-27.5); Globulin 2.9 g/dL (1.6-3.3); Non-African American GFR(CKD) 68.1 (60.0-200.0); Potassium 4.8 mmol/L (3.5-5.5); Total Bilirubin 0.4 mg/dL (0.30-1.20); Total Protein 7.1 g/dL (6.2-8.2)
[2022-12-27 11:25] LABS: INR 2.43 (0.90-1.11); Prothrombin Time 26.5 sec (9.9-11.9)
== END | disposition home or self-care (01) ==
LOC: LABWHC1 06:50
PROVIDERS: ATTEND Surgery
DX: K51.50 Left sided colitis without complications (principal); Z79.01 Long term (current) use of anticoagulants
CPT/HCPCS: 36415; 80053; 85025; 85610; 86140

== ENCOUNTER → 2023-03-23 | Outpatient (CLI) | payer MEDICARE ==
[2023-03-23 14:37] LABS: Basophils # (A) 0.03 X 10*3/uL (0.00-0.10); Basophils % (A) 0.4 %; Eosinophils # (A) 0.14 X 10*3/uL (0.04-0.35); Eosinophils % (A) 1.9 %; HCT 51.9 % (39.6-50.0); HGB 16.7 d/dL (13.0-17.0); Lymphocytes # (A) 2.83 X 10*3/uL (0.90-5.00); Lymphocytes % (A) 39.1 %; MCH 31.3 pg (27.0-32.0); MCHC 32.2 d/dL (32.0-37.0); MCV 97.2 FL (80.0-97.0); Mean Platelet Volume 10.6 FL (9.5-12.2); Monocytes # (A) 0.69 X 10*3/uL (0.20-1.00); Monocytes % (A) 9.5 %; NRBC Per 100 WBC 0 X 10*3/uL (0.00-0.01); Neutrophils # (A) 3.49 X 10*3/uL (1.80-7.70); Neutrophils % (A) 48.3 %; Platelet Count 175 X 10*3/uL (140-440); RBC 5.34 X 10*6/uL (4.40-5.60); RDW 12.7 % (11.5-14.5); WBC 7.24 X 10*3/uL (4.50-10.00)
[2023-03-24 02:17] LABS: ALT 30 U/L (10-49); AST 34 U/L (14-35); Albumin 4.5 d/dL (3.8-4.9); Albumin/Globulin Ratio 1.55 Ratio (1.60-3.17); Alkaline Phosphatase 65 U/L (41-126); BUN/Creat Ratio 9.27 Ratio (12.00-20.00); Blood Urea Nitrogen 10.2 mg/dL (9.0-27.0); C Reactive Protein <0.30 mg/dL (0.00-0.80); Calcium 9.4 mg/dL (8.7-10.3); Carbon Dioxide 27.4 mmol/L (21.6-31.8); Chloride 105 mmol/L (96-109); Globulin 2.9 d/dL (1.6-3.3); Glucose 117 mg/dL (70-110); Potassium 5.4 mmol/L (3.5-5.5); Sodium 142 mmol/L (135-145); Total Bilirubin 0.5 mg/dL (0.3-1.2); Total Protein 7.4 d/dL (6.2-8.2)
== END | disposition home or self-care (01) ==
LOC: LABWHC1 06:50
PROVIDERS: ATTEND Internal Medicine
DX: K51.50 Left sided colitis without complications (principal); I77.9 Disorder of arteries and arterioles, unspecified; Z79.01 Long term (current) use of anticoagulants
CPT/HCPCS: 36415; 80053; 85025; 86140

== ENCOUNTER → 2023-06-29 | Outpatient (CLI) | payer MEDICARE ==
[2023-06-29 08:18] LABS: Basophils % (A) 0 %; Eosinophils # (A) 0.2 k/uL (0-0.7); Eosinophils % (A) 2 %; HGB 18.8 gm/dL (13.0-17.5); Lymphocytes # (A) 2.8 k/uL (1.0-4.8); Lymphocytes % (A) 31 %; MCH 31.6 pg (25.0-35.0); MCHC 32.5 g/dL (31.0-37.0); MCV 97.2 fL (80.0-100.0); Mean Platelet Volume 7.6; Monocytes # (A) 0.6 k/uL (0-1.0); Monocytes % (A) 7 %; Neutrophils # (A) 5.2 k/uL (1.3-7.7); Neutrophils % (A) 57 %; Platelet Count 185 k/uL (150-450); RBC 5.95 m/uL (4.30-5.90); RDW 12.9 % (11.5-15.5); WBC 9.1 k/uL (3.8-10.6)
[2023-06-29 11:10] LABS: Prothrombin Time 28.7 sec (10.0-12.5)
[2023-06-29 11:21] LABS: INR 2.9 (<1.2)
[2023-06-29 11:36] LABS: HCT 57.9 % (39.0-53.0)
[2023-06-29 12:09] LABS: ALT 40 U/L (10-49); AST 48 U/L (14-35); Albumin 4.6 g/dL (3.8-4.9); Albumin/Globulin Ratio 1.35 Ratio (1.60-3.17); Alkaline Phosphatase 74 U/L (41-126); BUN/Creat Ratio 12.58 Ratio (12.00-20.00); Blood Urea Nitrogen 15.1 mg/dL (9.0-27.0); C Reactive Protein <0.30 mg/dL (0.00-0.80); Calcium 9.8 mg/dL (8.7-10.3); Carbon Dioxide 23.8 mmol/L (21.6-31.8); Chloride 103 mmol/L (96-109); Globulin 3.4 g/dL (1.6-3.3); Glucose 119 mg/dL (70-110); Potassium 4.6 mmol/L (3.5-5.5); Sodium 140 mmol/L (135-145); Total Bilirubin 0.4 mg/dL (0.3-1.2)
== END | disposition home or self-care (01) ==
LOC: LABWHC1 07:06
PROVIDERS: ATTEND Internal Medicine Gastroenterology
DX: I73.9 Peripheral vascular disease, unspecified (principal); K51.50 Left sided colitis without complications; Z79.01 Long term (current) use of anticoagulants
CPT/HCPCS: 36415; 80053; 85025; 85610; 86140

== ENCOUNTER → 2023-09-25 | Outpatient (CLI) | payer MEDICARE ==
[2023-09-25 15:38] LABS: INR 4.44 sec (0.93-1.11); Prothrombin Time 43.5 sec (9.9-11.9)
[2023-09-25 15:58] LABS: Basophils # (A) 0.03 X 10*3/uL (0.00-0.10); Basophils % (A) 0.3 %; Eosinophils # (A) 0.11 X 10*3/uL (0.04-0.35); Eosinophils % (A) 1.3 %; HGB 16.9 g/dL (13.0-17.0); Lymphocytes # (A) 3.18 X 10*3/uL (0.90-5.00); Lymphocytes % (A) 36.6 %; MCH 30.8 pg (27.0-32.0); MCHC 32.5 g/dL (32.0-37.0); MCV 94.9 FL (80.0-97.0); Mean Platelet Volume 10.6 FL (9.5-12.2); Monocytes # (A) 0.89 X 10*3/uL (0.20-1.00); Monocytes % (A) 10.2 %; NRBC Per 100 WBC 0 X 10*3/uL (0.00-0.01); Neutrophils # (A) 4.46 X 10*3/uL (1.80-7.70); Neutrophils % (A) 51.4 %; Platelet Count 190 X 10*3/uL (140-440); RBC 5.48 X 10*6/uL (4.40-5.60); RDW 12.3 % (11.5-14.5); WBC 8.69 X 10*3/uL (4.50-10.00)
[2023-09-25 16:18] LABS: ALT 29 U/L (10-49); AST 36 U/L (14-35); Albumin 4.2 g/dL (3.8-4.9); Albumin/Globulin Ratio 1.31 Ratio (1.60-3.17); Alkaline Phosphatase 71 U/L (41-126); BUN/Creat Ratio 9.91 Ratio (12.00-20.00); Blood Urea Nitrogen 10.9 mg/dL (9.0-27.0); C Reactive Protein <0.30 mg/dL (0.00-0.80); Calcium 9.5 mg/dL (8.7-10.3); Carbon Dioxide 22.2 mmol/L (21.6-31.8); Chloride 106 mmol/L (96-109); Globulin 3.2 g/dL (1.6-3.3); Glucose 108 mg/dL (70-110); Potassium 4.7 mmol/L (3.5-5.5); Sodium 142 mmol/L (135-145); Total Bilirubin 0.4 mg/dL (0.3-1.2); Total Protein 7.4 g/dL (6.2-8.2)
== END | disposition home or self-care (01) ==
LOC: LABWHC1 11:53
PROVIDERS: ATTEND Internal Medicine Gastroenterology
DX: K51.50 Left sided colitis without complications (principal); Z79.01 Long term (current) use of anticoagulants; I70.92 Chronic total occlusion of artery of the extremities
CPT/HCPCS: 36415; 80053; 85025; 85610; 86140

== ENCOUNTER → 2023-11-21 | Outpatient (CLI) | payer MEDICARE ==
--- NOTE | 2023-11-21 19:14 | XR ---
Left ankle HISTORY: Pain without trauma. COMPARISON: None TECHNIQUE: 3 views left ankle obtained FINDINGS: There is no fracture, dislocation, intraosseous, intra-articular soft tissue body. There is a small p lantar calcaneal spur. The ankle mortise is intact. IMPRESSION: 1. Small plantar calcaneal spur. 2. No other significant abnormality seen.
--- NOTE | 2023-11-21 19:16 | XR ---
Left foot HISTORY: Pain without trauma. COMPARISON: None. TECHNIQUE: 3 views left foot were obtained. FINDINGS: There is no fracture or dislocation There is marked osteoarthritic change of the first MTP joint where there is marked narrowing of the j oint space, mild hypertrophic spurring and subchondral sclerosis. No other intra-articular abnormalities are seen. There are no bony erosions. There are no soft tissue abnormalities. IMPRESSION: 1. Marked osteoarthritic changes of first MTP joint. 2. No other significant abnormality seen.
== END | disposition home or self-care (01) ==
LOC: RADXRMAIN 10:45
PROVIDERS: ATTEND Internal Medicine
DX: M77.32 Calcaneal spur, left foot (principal); M19.072 Primary osteoarthritis, left ankle and foot

== ENCOUNTER → 2023-12-28 | Outpatient (CLI) | payer MEDICARE ==
[2023-12-28 10:29] LABS: Basophils # (A) 0.03 X 10*3/uL (0.00-0.10); Basophils % (A) 0.3 %; Eosinophils # (A) 0.15 X 10*3/uL (0.04-0.35); Eosinophils % (A) 1.7 %; HCT 48.7 % (39.6-50.0); HGB 15.5 g/dL (13.0-17.0); Lymphocytes # (A) 2.53 X 10*3/uL (0.90-5.00); Lymphocytes % (A) 29.5 %; MCH 29.9 pg (27.0-32.0); MCHC 31.8 g/dL (32.0-37.0); Mean Platelet Volume 10.2 FL (9.5-12.2); Monocytes # (A) 0.84 X 10*3/uL (0.20-1.00); Monocytes % (A) 9.8 %; NRBC Per 100 WBC 0 X 10*3/uL (0.00-0.01); Neutrophils # (A) 5.01 X 10*3/uL (1.80-7.70); Neutrophils % (A) 58.4 %; Platelet Count 221 X 10*3/uL (140-440); RBC 5.18 X 10*6/uL (4.40-5.60); RDW 13.3 % (11.5-14.5); WBC 8.59 X 10*3/uL (4.50-10.00)
[2023-12-28 10:56] LABS: ALT 33 U/L (10-49); AST 34 U/L (14-35); Albumin 4.4 g/dL (3.8-4.9); Albumin/Globulin Ratio 1.33 Ratio (1.60-3.17); Alkaline Phosphatase 83 U/L (41-126); Blood Urea Nitrogen 13.2 mg/dL (9.0-27.0); C Reactive Protein <0.30 mg/dL (0.00-0.80); Calcium 9.5 mg/dL (8.7-10.3); Carbon Dioxide 26.2 mmol/L (21.6-31.8); Chloride 104 mmol/L (96-109); Globulin 3.3 g/dL (1.6-3.3); Glucose 121 mg/dL (70-110); Potassium 4.5 mmol/L (3.5-5.5); Sodium 141 mmol/L (135-145); Total Bilirubin 0.4 mg/dL (0.3-1.2); Total Protein 7.7 g/dL (6.2-8.2)
== END | disposition home or self-care (01) ==
LOC: LABWHC1 06:51
PROVIDERS: ATTEND Internal Medicine Gastroenterology
DX: K51.50 Left sided colitis without complications (principal)
CPT/HCPCS: 36415; 80053; 85025; 86140; 86480

== ENCOUNTER → 2024-03-28 | Outpatient (CLI) | payer MEDICARE ==
[2024-03-28 11:04] LABS: Basophils # (A) 0.03 X 10*3/uL (0.00-0.10); Basophils % (A) 0.4 %; Eosinophils # (A) 0.22 X 10*3/uL (0.04-0.35); HCT 48.6 % (39.6-50.0); HGB 15.5 g/dL (13.0-17.0); Lymphocytes # (A) 2.76 X 10*3/uL (0.90-5.00); Lymphocytes % (A) 37.6 %; MCH 30.5 pg (27.0-32.0); MCHC 31.9 g/dL (32.0-37.0); MCV 95.5 FL (80.0-97.0); Mean Platelet Volume 10.3 FL (9.5-12.2); Monocytes # (A) 0.59 X 10*3/uL (0.20-1.00); NRBC Per 100 WBC 0 X 10*3/uL (0.00-0.01); Neutrophils # (A) 3.72 X 10*3/uL (1.80-7.70); Neutrophils % (A) 50.6 %; Platelet Count 176 X 10*3/uL (140-440); RBC 5.09 X 10*6/uL (4.40-5.60); RDW 12.9 % (11.5-14.5); WBC 7.35 X 10*3/uL (4.50-10.00)
[2024-03-28 11:19] LABS: ALT 47 U/L (10-49); AST 40 U/L (14-35); Albumin 4.2 g/dL (3.8-4.9); Alkaline Phosphatase 76 U/L (41-126); BUN/Creat Ratio 12.89 Ratio (12.00-20.00); Blood Urea Nitrogen 11.6 mg/dL (9.0-27.0); Calcium 8.9 mg/dL (8.7-10.3); Carbon Dioxide 27.3 mmol/L (21.6-31.8); Chloride 106 mmol/L (96-109); Globulin 2.8 g/dL (1.6-3.3); Glucose 116 mg/dL (70-110); Potassium 5.2 mmol/L (3.5-5.5); Sodium 140 mmol/L (135-145); Total Bilirubin 0.3 mg/dL (0.3-1.2)
== END | disposition home or self-care (01) ==
LOC: LABWHC1 06:50
PROVIDERS: ATTEND Internal Medicine
DX: K51.50 Left sided colitis without complications
CPT/HCPCS: 36415; 80053; 85025; 86140

== ENCOUNTER → 2024-06-13 | Outpatient (CLI) | payer MEDICARE | END | disposition home or self-care (01) | LOC: LABWHC1 06:52 | PROVIDERS: ATTEND Internal Medicine Gastroenterology | DX: Z53.9 Procedure and treatment not carried out, unspecified reason (principal) ==

== ENCOUNTER → 2024-06-13 | Outpatient (CLI) | payer MEDICARE | END | disposition home or self-care (01) | LOC: LABWHC1 06:48 | PROVIDERS: ATTEND Internal Medicine Clinical Cardiac Electrophysiology | DX: Z53.9 Procedure and treatment not carried out, unspecified reason (principal) ==

== ENCOUNTER → 2024-06-13 | Outpatient (CLI) | payer MEDICARE ==
[2024-06-13 10:22] LABS: Basophils # (A) 0.03 X 10*3/uL (0.00-0.10); Basophils % (A) 0.4 %; Eosinophils % (A) 2.5 %; HCT 48.5 % (39.6-50.0); HGB 16.2 g/dL (13.0-17.0); Lymphocytes # (A) 2.74 X 10*3/uL (0.90-5.00); Lymphocytes % (A) 34.2 %; MCH 31.3 pg (27.0-32.0); MCHC 33.4 g/dL (32.0-37.0); MCV 93.6 FL (80.0-97.0); Mean Platelet Volume 10.5 FL (9.5-12.2); Monocytes # (A) 0.84 X 10*3/uL (0.20-1.00); Monocytes % (A) 10.5 %; NRBC Per 100 WBC 0 X 10*3/uL (0.00-0.01); Neutrophils # (A) 4.18 X 10*3/uL (1.80-7.70); Neutrophils % (A) 52.2 %; Platelet Count 162 X 10*3/uL (140-440); RBC 5.18 X 10*6/uL (4.40-5.60); RDW 12.9 % (11.5-14.5); WBC 8.01 X 10*3/uL (4.50-10.00)
[2024-06-13 10:36] LABS: ALT 34 U/L (10-49); AST 42 U/L (14-35); Albumin 4.2 g/dL (3.8-4.9); Albumin/Globulin Ratio 1.45 Ratio (1.60-3.17); Alkaline Phosphatase 79 U/L (41-126); Blood Urea Nitrogen 14.6 mg/dL (9.0-27.0); Calcium 9.2 mg/dL (8.7-10.3); Carbon Dioxide 26.6 mmol/L (21.6-31.8); Chloride 105 mmol/L (96-109); Chol/HDL Ratio 3.95 Ratio; Globulin 2.9 g/dL (1.6-3.3); Glucose 121 mg/dL (70-110); LDL Cholesterol,Calculated 87.8 mg/dL (0.0-131.0); Potassium 4.4 mmol/L (3.5-5.5); Sodium 142 mmol/L (135-145); Total Bilirubin 0.6 mg/dL (0.3-1.2); Total Protein 7.1 g/dL (6.2-8.2)
[2024-06-13 10:51] LABS: INR 2.47 sec (0.93-1.11); Prothrombin Time 25.1 sec (9.9-11.9)
== END | disposition home or self-care (01) ==
LOC: LABWHC1 06:54
PROVIDERS: ATTEND Internal Medicine
DX: I73.9 Peripheral vascular disease, unspecified (principal); Z79.01 Long term (current) use of anticoagulants
CPT/HCPCS: 36415; 80053; 80061; 85025; 85610; 86140

== ENCOUNTER → 2024-10-10 | Outpatient (CLI) | payer MEDICARE ==
[2024-10-10 10:18] LABS: Basophils # (A) 0.04 X 10*3/uL (0.00-0.10); Basophils % (A) 0.5 %; Eosinophils # (A) 0.28 X 10*3/uL (0.04-0.35); Eosinophils % (A) 3.4 %; HCT 50.4 % (39.6-50.0); HGB 16.7 g/dL (13.0-17.0); Lymphocytes # (A) 3.08 X 10*3/uL (0.90-5.00); Lymphocytes % (A) 37.1 %; MCH 31.5 pg (27.0-32.0); MCHC 33.1 g/dL (32.0-37.0); MCV 95.1 FL (80.0-97.0); Mean Platelet Volume 10.6 FL (9.5-12.2); Monocytes # (A) 0.79 X 10*3/uL (0.20-1.00); Monocytes % (A) 9.5 %; NRBC Per 100 WBC 0 X 10*3/uL (0.00-0.01); Neutrophils # (A) 4.08 X 10*3/uL (1.80-7.70); Neutrophils % (A) 49.1 %; Platelet Count 163 X 10*3/uL (140-440); RDW 12.7 % (11.5-14.5)
[2024-10-10 11:17] LABS: INR 3.49 sec (0.93-1.11); Prothrombin Time 36.3 sec (9.9-11.9)
[2024-10-10 15:14] LABS: ALT 26 U/L (10-49); AST 38 U/L (14-35); Albumin 4.2 g/dL (3.8-4.9); Albumin/Globulin Ratio 1.27 Ratio (1.60-3.17); Alkaline Phosphatase 76 U/L (41-126); Blood Urea Nitrogen 13.2 mg/dL (9.0-27.0); C Reactive Protein <0.30 mg/dL (0.00-0.80); Carbon Dioxide 26.7 mmol/L (21.6-31.8); Chloride 104 mmol/L (96-109); Globulin 3.3 g/dL (1.6-3.3); Glucose 109 mg/dL (70-110); Potassium 4.5 mmol/L (3.5-5.5); Sodium 141 mmol/L (135-145); Total Bilirubin 0.5 mg/dL (0.3-1.2); Total Protein 7.5 g/dL (6.2-8.2)
== END | disposition home or self-care (01) ==
LOC: LABWHC1 07:08
PROVIDERS: ATTEND Internal Medicine
DX: I73.9 Peripheral vascular disease, unspecified (principal); Z79.01 Long term (current) use of anticoagulants
CPT/HCPCS: 36415; 80053; 85025; 85610; 86140

== ENCOUNTER → 2025-01-20 | Outpatient (CLI) | payer MEDICARE ==
[2025-01-20 07:48] LABS: INR 3.3 (<1.2); Prothrombin Time 32.3 sec (10.0-12.5)
[2025-01-20 10:17] LABS: HCT 49.2 % (39.6-50.0); MCH 31.6 pg (27.0-32.0); MCHC 32.5 g/dL (32.0-37.0); Mean Platelet Volume 10.3 FL (9.5-12.2); NRBC Per 100 WBC 0 X 10*3/uL (0.00-0.01); Platelet Count 169 X 10*3/uL (140-440); RBC 5.07 X 10*6/uL (4.40-5.60)
[2025-01-20 10:18] LABS: Basophils # (A) 0.03 X 10*3/uL (0.00-0.10); Basophils % (A) 0.4 %; Eosinophils # (A) 0.19 X 10*3/uL (0.04-0.35); Eosinophils % (A) 2.4 %; Lymphocytes % (A) 38.5 %; Monocytes # (A) 1.01 X 10*3/uL (0.20-1.00); Monocytes % (A) 12.9 %; Neutrophils # (A) 3.54 X 10*3/uL (1.80-7.70); Neutrophils % (A) 45.4 %
[2025-01-20 10:35] LABS: ALT 27 U/L (10-49); AST 38 U/L (14-35); Albumin 4.3 g/dL (3.8-4.9); Albumin/Globulin Ratio 1.26 Ratio (1.60-3.17); Alkaline Phosphatase 86 U/L (41-126); Calcium 9.1 mg/dL (8.7-10.3); Carbon Dioxide 27.1 mmol/L (21.6-31.8); Chloride 103 mmol/L (96-109); Globulin 3.4 g/dL (1.6-3.3); Glucose 137 mg/dL (70-110); Potassium 4.8 mmol/L (3.5-5.5); Sodium 140 mmol/L (135-145); Total Bilirubin 0.9 mg/dL (0.3-1.2); Total Protein 7.7 g/dL (6.2-8.2)
== END | disposition home or self-care (01) ==
LOC: LABWHC1 06:53
PROVIDERS: ATTEND Internal Medicine Gastroenterology
DX: K51.50 Left sided colitis without complications (principal); I73.9 Peripheral vascular disease, unspecified; Z79.01 Long term (current) use of anticoagulants
CPT/HCPCS: 36415; 80053; 85025; 85610; 86140; 86480